=== PATIENT | male | born 1950 | race Caucasian/White ===

== ENCOUNTER → 2016-11-03 14:39 | Outpatient (CLI) | payer OTHER ==
[2015-04-19 11:15] VITALS: BMI 32.1
[~2016-11-03 14:39] MED LIST: ASPIRIN EC81 M1 PO; GLIPIZIDE PO; GLUCOPHAGE1000 MG PO; GLUCOPHAGE500 MG PO; HEMOCYTE PLUS C1 CAP PO; HYDROCODON-ACE1 EAC9 PO; HYDROCODONE-APA1 TAB PO; LANTUS SOL100 UNIT/1 SC; LEVAQUIN750 MG PO; LIPITOR40 MG PO; LISINOPRIL PO; LISINOPRIL2.5 MG PO; LOPRESSOR25 MG PO; NITROSTAT0.4 MG SL
[2016-11-05 08:21] LABS: HEPATITIS C ANTIBODY <0.1 (0.0-0.9)
== END | disposition home or self-care (01) ==
LOC: D.US 14:30
PROVIDERS: Internal Medicine Cardiovascular Disease
DX: Z01.812 Encounter for preprocedural laboratory examination (principal)

== ENCOUNTER 2016-11-06 00:01 | Outpatient (CLI) | payer OTHER ==
[~2016-11-06 00:01] MED LIST changes: -GLUCOPHAGE1000 MG PO; -HEMOCYTE PLUS C1 CAP PO; -HYDROCODON-ACE1 EAC9 PO; -HYDROCODONE-APA1 TAB PO; -LANTUS SOL100 UNIT/1 SC; -LEVAQUIN750 MG PO; -LIPITOR40 MG PO; -LISINOPRIL2.5 MG PO; -LOPRESSOR25 MG PO; -NITROSTAT0.4 MG SL
[2016-11-09] MEDS ORDERED: LIPITOR40 MG PO (09:50)
[2016-11-09] MEDS ORDERED: GLUCOPHAGE1000 MG PO (09:50)
[2016-11-09] MEDS ORDERED: LANTUS SOL100 UNIT/1 SC (09:52)
[2016-11-09] MEDS ORDERED: LISINOPRIL2.5 MG PO (09:53)
[2016-11-09] MEDS ORDERED: NITROSTAT0.4 MG SL (09:54)
--- NOTE | 2016-11-09 15:15 | NUR ---
AT [facility] PATIENT REPORTED HAVING PRODUCTIVE COUGH X 3-4 DAYS, DENIES FEVER, CHILLS, SHORTNESS OF BREATH OR ANY OTHER SYMPTOMS. CURRENT TEMP 99.0. FAISAL ZAMORA RN NOTIFIED OF ABOVE. PATIENT INFORMED SURGERY CANCELLED FOR 11/11/16 & HE NEEDS TO F/U AT [facility] FOR COUGH, FEVER. PT TO CALL DR. WARD'S OFFICE TO R/S WHEN SYMPTOMS RESOLVED.
--- NOTE | 2016-11-14 10:49 | HP ---
PATIENT: MAHSA CARSON MEDICAL RECORD: [id number] ACCOUNT: [id number] LOCATION:[facility] : 48 ADMISSION DATE: 11/11/16 HISTORY AND PHYSICAL EXAMINATION MAHSA Veras (66yo, M) ID# [id number]. Date/Time11/03/2016 02:[id number] 1950Service Dept.[facility] Cardiovascular Surgery ClinicProviderEDLILA WARD MDInsuranceMed Primary: MEDICARE-[place] (MEDICARE) Insurance # : [id number] Employer Name : RETIRED Med Contracts: [employer] Insurance # : [id number] Employer Name : RETIRED Prescription: [employer] - This member could not be found in the payer's files. Please verify coverage and all member demographic information. Chief Complaint Coronary artery disease Patient's Care Team Notes: NO PCP Patient's Pharmacies [facility] (PHARMACY): [address] [place] [id number], , [facility] [address] (ERX): [address] [facility] [address], , Vitals BP:132/78 sitting R arm 11/03/2016 01:27 pm 112/70 sitting L arm 11/03/2016 01:28 pmHR:66R/R 11/03/2016 01:28 pmHt:6 ft 11/03/2016 01:23 pmWt:230 lbs 11/03/2016 01:23 pmBMI:31.2 11/03/2016 01:23 pmAllergies Reviewed Allergies NKDAMedications Reviewed Medications aspirin 81mg daily11/03/16 enteredCindy Brownatorvastatin 80 mg tablet Take 1 tablet(s) every day by oral route.11/03/16 enteredCindy BrownHumuLIN R U-100 100 unit/mL injection solution PER SLIDING SCALE12/06/15 filledsurescriptsinsulin glargine 100 unit/mL (3 mL) subcutaneous pen Inject 40 unit(s) every day by subcutaneous route at bedtime.11/03/16 Paris Hickeyisosorbide dinitrate 30 mg tablet Take 1 tablet(s) every day by oral route.11/03/16 Paris HickeyKenalog 10 mg/mL suspension for injection Take 1 mL by injection route as directed.07/04/15 Devika Villagomez MDlisinopril 2.5 mg tablet Take 1 tablet(s) every day by oral route.11/03/16 enteredCindana BrownmetFORMIN 1000mg 1 tablet by mouth twice daily04/04/15 enteredCarry Shirleymetoprolol tartrate 25 mg tablet Take 0.5 tablet(s) twice a day by oral route.11/03/16 enteredCindana Hickeynitroglycerin 0.[address] 1 tablet(s) as needed by sublingual route.11/03/16 christopherIqra HickeyNovoLIN R InnoLet 100 unit/mL (3 mL) subcutaneous insulin pen Inject 8 unit(s) 3 times a day by subcutaneous route before meals.11/03/16 christopherIqra HickeyProblems Reviewed Problems Coronary arteriosclerosis - Onset: 11/03/2016 HISTORY AND PHYSICAL [id number] MAHSA CARSON Olecranon bursitis Rupture of tendon of biceps Family History Discussed Family History Non-contributory.Father- PneumoniaMother- Family history of cancerSocial History Discussed Social History Smoking Status: Never smoker Surgical History Reviewed Surgical History Biceps tendon repair Biceps tendon repair - 04/19/2015 Other - 2013 - LITHOTRIPSY-KIDNEY STONES Other - 2012 - HERNIA REPAIR Past Medical History Discussed Past Medical History Chest Pain: Y Coronary Artery Disease: Y Diabetes: Y - insulin dependent Hypertension: Y Stroke: Y Kidney Disease: (no answer) - KIDNEY STONES Documents for Discussion N/A Screening None recorded. HPI coronary artery disease with angina pectoris ROS Patient reports no fever, no night sweats, no significant weight gain, no significant weight loss, and no exercise intolerance; easy fatigability. He reports vision change (left homonymous heminoptcia) but r eports no dry eyes and no irritation. He reports chest pain on exertion, arm pain on exertion, and shortness of breath when walking but reports no shortness of breath when lying down, no palpitations, and no known heart murmur. He reports shortness of breath but reports no cough, no wheezing, and no coughing up blood. He reports muscle aches and arthralgias/joint pain but reports no muscle weakness, no back pain, and no swelling in the extremities. He reports no loss of consciousness, no weakness, no numbness, no seizures, no dizziness, and no headaches; left field cut. He reports no difficulty hearing and no ear pain. He reports no frequent nosebleeds and no nose/sinus problems. He reports no sore throat, no bleeding gums, no snoring, no dry mouth, no mouth ulcers, no oral abnormalities, and no teeth problems. He reports no jugular vein distension and no swollen glands. He reports no abdominal pain, no vomiting, normal appetite, no diarrhea, not vomiting blood, no nausea, and no constipation. He reports no i ncontinence, no difficulty urinating, no hematuria, and no increased frequency. He reports no abnormal mole, no jaundice, and no rashes. He reports no depression, no sleep disturbances, feeling safe in relationship, and no alcohol abuse. He reports no fat igue. He reports no swollen glands and no bruising. He reports no runny nose, no sinus pressure, no itching, no hives, and no frequent sneezing. ROS as noted in the HPI Physical Exam Patient is a 66-year-old male. HISTORY AND PHYSICAL [id number] MAHSA CARSON Constitutional: General Appearance well nourished and developed and healthy-appearing. Level of Distress NAD. Ambulation ambulating normally. Cardiovascular: Apical Impulse not displaced or no thrill. Heart Auscultation normal s1 and s2; no murmurs, rubs, or gallops; and RRR. Arterial Pulses no abdominal aorta bruits, femoral bruits, or popliteal bruits and 2+ bilateral, carotid 2+ bilateral, femoral 2+ bilateral, popliteal 2+ bilateral, and dorsalis pedis 2+ bilateral. Edema no edema or varicosities. Lungs: Repiratory Effort no dyspnea. Percuss ion no hyperresonance or dullness or flatness. Auscultation no wheezing, rhonchi, or rales / crackles and breathing sounds normal, good air movement, and CTA except as noted. Abdomen: Bowl Sounds normal. Inspection and Palpation no tenderness, guarding, m asses, or rebound tenderness and soft and non-distended. Liver non-tender and no hepatomegaly. Spleen non-tender and no splenomegaly. Hernia none palpable. Musculoskeletal System: Gait And Stance normal gait and stance. Digits and Nails normal nails and no cyanosis. Neurologic: Cranial Nerves grossly intact. Reflexes DTRs 2+ bilaterally throughout. Sensation grossly intact. Lymph Nodes: Lymph Nodes no cervical LAD, supraclavicular LAD, axillary LAD, or inguinal LAD. Eyes: Lids and Conjunctivae no discharge or pallor and non-injected; the left field cut. Pupils PERRLA. Cornea grossly intact. EOM EOMI. Lens clear. Sclerae non-icteric. Neck: Neck no masses or enlarged lymph nodes and supple, trachea midline, and carotid bruits (soft bilateral). Thyroid no enlargement or nodules and non-tender. Skin: Inspection and Palpation no rash, lesions, ulcers, jaundice, or abnormal nevi. Assessment / Plan atherosclerosis coronary arteries with angina Diabetes mellitus History of stroke 1. Angina pectoris I20.9: Angina pectoris, unspecified ANGINA: CARE INSTRUCTIONS 2. Coronary arteriosclerosis in [place] artery I25.10: Atherosclerotic heart disease of [place] coronary artery without angina pectoris 3. History of cerebrovascular accident Z86.73: Personal hi story of transient ischemic attack (TIA), and cerebral infarction without residual deficits 4. Type 2 diabetes mellitus without complication E11.9: Type 2 diabetes mellitus without complications TYPE 2 DIABETES: CARE INSTRUCTIONS HISTORY AND PHYSICAL [id number] MAHSA CARSON Discussion Notes diabetic atherosclerosis of the coronary arteries with angina pectoris.He will need carotid Doppler studies to rule out disease because of his history with stroke. After his workup I think that he would benefit from coronary artery bypass. I have discusse d his disease process with him in detail as well as the alternative methods of treatment. We discussed coronary artery bypass and the expected benefits and risk which included bleeding, infection, stroke, loss of limb, and . We also discussed the impo nderables associated with an operation. He understands all of the above and wishes to proceed with planned surgery. Return to Office Martin Ward MD for Surgery at [facility]GERY SCHEDULE on 11/11/2016 at 07:30 AM MARTIN WARD MD at 1049 CC: [id number] DICTATION DATE: 11/03/15 1400 SENIOR TECHNICAL MANAGER: ISELA 11/09/16 0951 [address] IN [place] [id number] [place], [place] [id number]
== END 2016-11-06 23:59 | disposition home or self-care (01) ==
LOC: D.PAN 00:01 → EDSTATUS 11-11 07:30 → D.SDCHOLD 11-11 07:30
DX: Z01.810 Encounter for preprocedural cardiovascular examination (principal); Z01.811 Encounter for preprocedural respiratory examination; Z01.812 Encounter for preprocedural laboratory examination; Z53.9 Procedure and treatment not carried out, unspecified reason

== ENCOUNTER 2016-11-24 05:00 | Inpatient (IN) | payer OTHER ==
--- NOTE | 2016-11-21 11:06 | HP ---
PATIENT: MAHSA CARSON MEDICAL RECORD: [id number] ACCOUNT: [id number] LOCATION:[facility] : 48 ADMISSION DATE: 11/24/16 HISTORY AND PHYSICAL EXAMINATION MAHSA Veras (66yo, M) ID# [id number]. Date/Time11/19/2016 01:[id number] 1950Service Dept.[facility] Cardiovascular Surgery ClinicProviderEDLILA WARD MDInsuranceMed Primary: MEDICARE-[place] (MEDICARE) Insurance # : [id number] Employer Name : RETIRED Med Contracts: [employer] Insurance # : [id number] Employer Name : RETIRED Prescription: [employer] - This member could not be found in the payer's files. Please verify coverage and all member demographic information. Chief Complaint Followup: Coronary arteriosclerosis preop for CABG, CAD Patient's Care Team Notes: NO PCP Patient's Pharmacies [facility] (PHARMACY): [address] [address], , [facility] [address] (ERX): [address] [facility] [address], , Vitals BP:138/76 sitting L arm 11/19/2016 01:47 pmBP Cuff Size:adult 11/19/2016 01:47 pmHR:88,reg 11/19/2016 01:47 pmHt:6 ft 11/19/2016 01:44 pmWt:230 lbs 11/19/2016 01:47 pmNotes:finished antibiotics last week, states he is well and ready to schedule surgery 11/19/2016 01:48 pmBMI:31.2 11/19/2016 01:47 pmAllergies Reviewed Allergies NKDAMedications Reviewed Medications aspirin 81mg daily11/03/16 enteredCindy Brownatorvastatin 80 mg tablet Take 1 tablet(s) every day by oral route.11/03/16 enteredCindana BrownHumuLIN R U-100 100 unit/mL injection solution PER SLIDING SCALE12/06/15 filledsurescriptsinsulin glargine 100 unit/mL (3 mL) subcutaneous pen Inject 40 unit(s) every day by subcutaneous route at bedtime.11/03/16 christopherIqra Hickeyisosorbide dinitrate 30 mg tablet Take 1 tablet(s) every day by oral route.11/03/16 christopherAnalisadana HickeyKenalog 10 mg/mL suspension for injection Take 1 mL by injection route as directed.07/04/15 Devika Villagomez MDlisinopril 2.5 mg tablet Take 1 tablet(s) every day by oral route.11/03/16 enteredCindana HickeymetFORMIN 1000mg 1 tablet by mouth twice daily04/04/15 enteredCarezra Shirleymetoprolol tartrate 25 mg tablet Take 0.5 tablet(s) twice a day by oral route.11/03/16 christopherIqra Hickeynitroglycerin 0.[address] 1 tablet(s) as needed by sublingual route.11/03/16 Paris HickeyNovoLIN R InnoLet 100 unit/mL (3 mL) subcutaneous insulin pen Inject 8 unit(s) 3 times a day by subcutaneous route before meals.11/03/16 Paris HickeyProblems Reviewed Problems HISTORY AND PHYSICAL [id number] MAHSA CARSON Coronary arteriosclerosis - Onset: 11/03/2016 Olecranon bursitis Rupture of tendon of biceps Family History Discussed Family History Non-contributory.Father- PneumoniaMother- Family history of cancerSocial History Discussed Social History Smoking Status: Never smoker Surgical History Reviewed Surgical History Biceps tendon repair Biceps tendon repair - 04/19/2015 Other - 2013 - LITHOTRIPSY-KIDNEY STONES Other - 2012 - HERNIA REPAIR Past Medical History Discussed Past Medical History Chest Pain: Y Coronary Artery Disease: Y Diabetes: Y - insulin dependent Hypertension: Y Stroke: Y Kidney Disease: (no answer) - KIDNEY STONES Documents for Discussion Discussed the following documents: HEPATITIS (A+B+C) PANEL, SERUM - 11/05/16 Results: - SERUM OR PLASMA HEPATITIS A VIRUS IGM ANTIBODY DETECTION BY IMMUNOASSAY: NEGATIVE NEGATIVE NORMAL - SERUM OR PLASMA HEPATITIS B VIRUS CORE IGM ANTIBODY DETECTION BY IMMUNOA: NEGATIVE NEGATIVE NORMAL - SERUM OR PLASMA HEPATITIS B VIRUS SURFACE ANTIGEN DETECTION BY IMMUNOASSA: NEGATIVE NEGATIVE NORMAL - HCV AB S/CO SERPL EIA: < 0.1 NORMAL US, DUPLEX, CAROTID ARTERY - 11/03/16 HISTORY AND PHYSICAL - [facility] - 11/10/16 Screening None recorded. HPI Coronary Artery Disease F/U Reported by patient. Associated Symptoms: dyspnea with exertion; every afternoon gets tired and it's time to rest coronary artery disease with angina pectoris ROS Patient reports no fever, no night sweats, no significant weight gain, no significant weight loss, and no exercise intolerance; easy fatigability. He reports vision change (left homonymous heminoptcia) but reports no dry eyes and no irritation. He reports chest pain on exertion, arm pain on exertion, and shortness of breath when walking but reports no shortness of breath when lying down, no palpitations, and no known heart murmur. He reports shortness of breath but reports no cough, no wheezing, and no coughing up blood. He reports muscle aches and arthralgias/joint pain but reports no muscle weakness, no back pain, and no HISTORY AND PHYSICAL [id number] MAHSA CARSON swelling in the extremities. He reports no loss of consciousness, no weakness, no numbness, no seizures, no dizziness, and no headaches; left field cut. He reports no difficulty hearing and no ear pain. He reports no frequent nosebleeds and no nose/sinus problems. He reports no sore throat, no bleeding gums, no snoring, no dry mouth, no mouth ulcers, no oral abnormalities, and no teeth problems. He reports no jugular vein disten s ion and no swollen glands. He reports no abdominal pain, no vomiting, normal appetite, no diarrhea, not vomiting blood, no nausea, and no constipation. He reports no incontinence, no difficulty urinating, no hematuria, and no increased frequency. He repor t s no abnormal mole, no jaundice, and no rashes. He reports no depression, no sleep disturbances, feeling safe in relationship, and no alcohol abuse. He reports no fatigue. He reports no swollen glands and no bruising. He reports no runny nose, no sinus pr essure, no itching, no hives, and no frequent sneezing. ROS as noted in the HPI Physical Exam Patient is a 66-year-old male. Constitutional: General Appearance well nourished and developed and healthy-appearing. Level of Distress NAD. Ambulation ambulating normally. Cardiovascular: Apical Impulse not displaced or no thrill. Heart Auscultation normal s1 and s2; no murmurs, rubs, or gallops; and RRR. Arterial Pulses no abdominal aorta bruits, femoral bruits, or popliteal bruits and 2+ bilateral, carotid 2+ bilateral, femoral 2+ bilateral, popliteal 2+ bilateral, and dorsalis pedis 2+ bilateral. Edema no edema or varicosities. Lungs: Repiratory Effort no dyspnea. Percussion no hyperresonance or dullness or flatness. Auscultation no wheezing, rhonchi, or rale s / crackles and breathing sounds normal, good air movement, and CTA except as noted. Abdomen: Bowl Sounds normal. Inspection and Palpation no tenderness, guarding, masses, or rebound tenderness and soft and non-distended. Liver non-tender and no hepatomegaly. Spleen non-tender and no splenomegaly. Hernia none palpable. Musculoskeletal System: Gait And Stance normal gait and stance. Digits and Nails normal nails and no cyanosis. Neurologic: Cranial Nerves grossly intact. Reflexes DTRs 2+ bilaterally throughout. Sensation grossly intact. Lymph Nodes: Lymph Nodes no cervical LAD, supraclavicular LAD, axillary LAD, or inguinal LAD. Eyes: Lids and Conjunctivae no discharge or pallor and non-injected; the left field cut. Pupils PERRLA. Cornea grossly intact. EOM EOMI. Lens clear. Sclerae non-icteric. Neck: Neck no masses or enlarged lymph nodes and supple, trachea midline, and carotid bruits (soft bilateral). Thyroid no enlargement or nodules and non-tender. Skin: Inspection and Palpation no rash, lesions, ulcers, jaundice, or abnormal nevi. Assessment / Plan preop aortocoronary artery bypass 1. Coronary arteriosclerosis HISTORY AND PHYSICAL [id number] MAHSA CARSON I25.10: Atherosclerotic heart disease of [place] coronary artery without angina pectoris Discussion Notes he has recovered from his URI and is ready for coronary bypass. I have discussed his disease process with him in detail as well as the alternative methods of treatment. We discussed coronary artery bypass including the expected benefits and risk whi ch included bleeding, infection, stroke, loss of limb, and . He understands all of the above and wishes to proceed with planned procedure. Return to Office Yony Ward MD for Surgery at [facility]_SURGERY SCHEDULE on 11/24/2016 at 07:30 AM YONY WARD MD at 1106 CC: [id number] DICTATION DATE: 11/19/16 1345 ECONOMIC GEOGRAPHER: ISELA 11/20/16 0920 PRE IN [facility] [address] [place] [address]
[2016-11-23 10:55] LABS: BASOPHILS 0.1 % (0.0-2.0); EOSINOPHILS 2.1 % (0-7); HEMATOCRIT 44.1 % (42.0-54.0); HEMOGLOBIN 15.6 g/dL (13.5-17.5); IMMATURE GRANULOCYTES 0.1 % (0-5); LYMPHOCYTES 18.6 % (15-50); MCH 30.7 pg (26.0-34.0); MCHC 35.4 g/dL (31.0-37.0); MCV 86.8 fL (80.0-100.0); MEAN PLATELET VOLUME 11.2 fL (7.4-10.4); MONOCYTES 4.7 % (2-11); NEUTROPHILS 74.4 % (40-80); PLATELET COUNT 129 10x3/uL (130-400); RBC 5.08 10x6/uL (4.20-6.10); RDW 13.1 % (11.5-14.5); WBC 6.8 10x3/uL (4.8-10.8)
[2016-11-23 11:28] LABS: APTT 27.9 SECONDS (22.8-39.4); INR 1.03 (0.85-1.17); PROTIME 13.3 SECONDS (11.6-15.0)
[2016-11-23 11:39] LABS: ALBUMIN 3.8 g/dL (3.4-5.0); ALKALINE PHOSPHATASE 100 U/L (46-116); ALT (SGPT) 41 U/L (10-68); CALC OSMOLALITY 279 mosm/kg (275-300); CALCIUM 8.8 mg/dL (8.5-10.1); CARBON DIOXIDE 28.5 mmol/L (21.0-32.0); CHLORIDE - SERUM 98 mmol/L (98-107); CHOLESTEROL, TOTAL 119 mg/dL (0-200); CREATININE - SERUM 0.9 mg/dL (0.6-1.3); GLUCOSE 303 mg/dL (74-106); PHOSPHOROUS 3.2 mg/dL (2.5-4.9); POTASSIUM - SERUM 4.8 mmol/L (3.5-5.1); PROTEIN - SERUM 6.9 g/dL (6.4-8.2); SODIUM 134 mmol/L (136-145); T4 THYROXIN - FREE 1.14 ng/dL (0.76-1.46); UREA NITROGEN 14 mg/dL (7-18); URIC ACID 4.2 mg/dL (2.6-7.2); eGFR NON AFRICAN AMERICAN 89 mL/min (90-120)
[2016-11-23 12:06] LABS: APPEARANCE CLEAR (CLEAR); BILIRUBIN NEGATIVE (NEGATIVE); COLOR YELLOW (YELLOW); GLUCOSE 1000 mg/dL (NEGATIVE); KETONE NEGATIVE (NEGATIVE); LEUKOCYTE ESTERASE NEGATIVE (NEGATIVE); NITRITE NEGATIVE (NEGATIVE); PROTEIN NEGATIVE (NEGATIVE); UROBILINOGEN NORMAL (NORMAL)
[2016-11-23 13:08] LABS: COLD SCREEN ROOM TEMP NEGATIVE (NEGATIVE)
[2016-11-23 13:09] LABS: COLD SCREEN @ 4 DEGREES NEGATIVE (NEGATIVE)
[~2016-11-24] VITALS: Ht 182.9 cm; Wt 111.7 kg
[2016-11-24] VITALS (35 sets, daily range): BP systolic 97–127; BP diastolic 38–374; BMI 31.5; BMI 34.0
[~2016-11-24 05:00] MED LIST changes: +GLUCOPHAGE1000 MG PO; +LANTUS SOL100 UNIT/1 SC; +LIPITOR40 MG PO; +LISINOPRIL2.5 MG PO; +NITROSTAT0.4 MG SL
[2016-11-24 08:12] LABS: PLT FUNCT.(P2Y12) PLAVIX 320 PRU (194-418)
[2016-11-24 15:24] LABS: MCH 30.3 pg (26.0-34.0); MCHC 34.8 g/dL (31.0-37.0); MCV 87.1 fL (80.0-100.0); MEAN PLATELET VOLUME 10.3 fL (7.4-10.4); RDW 13.3 % (11.5-14.5)
[2016-11-24 15:25] LABS: HEMOGLOBIN 11.5 g/dL (13.5-17.5); RBC 3.79 10x6/uL (4.20-6.10)
[2016-11-24 15:35] LABS: APTT 33.6 SECONDS (22.8-39.4); INR 1.42 (0.85-1.17); PROTIME 17.2 SECONDS (11.6-15.0)
[2016-11-24 15:40] LABS: CALCIUM 7.6 mg/dL (8.5-10.1); CARBON DIOXIDE 25.1 mmol/L (21.0-32.0); CHLORIDE - SERUM 110 mmol/L (98-107); SODIUM 145 mmol/L (136-145); UREA NITROGEN 12 mg/dL (7-18)
[2016-11-24 15:41] LABS: CALC OSMOLALITY 292 mosm/kg (275-300); CREATININE - SERUM 0.6 mg/dL (0.6-1.3); GLUCOSE 177 mg/dL (74-106); POTASSIUM - SERUM 3.5 mmol/L (3.5-5.1); eGFR NON AFRICAN AMERICAN > 90 mL/min (90-120)
--- NOTE | 2016-11-24 15:54 | NUR ---
Patient received from OR via heart team.
--- NOTE | 2016-11-24 16:30 | NUR ---
Fluid challange order per
--- NOTE | 2016-11-24 16:35 | NUR ---
brought back into room. Password for acct created. Patient waking slowly at this time.
--- NOTE | 2016-11-24 17:12 | NUR ---
in room. TPM settings played with. Settings remain DDD, 10 & 10.
--- NOTE | 2016-11-24 18:26 | NUR ---
ABGS obtained for call to . Pt continuing to wake slowly. BP starting to trend down.
--- NOTE | 2016-11-24 18:36 | NUR ---
called and given update. No new orders. Will replace Potassium per standing order per ABG
--- NOTE | 2016-11-24 19:00 | NUR ---
REC'D TO CARE. PT ON MECH VENT VIA OETT - SEE FLOWSHEET. B/L SOFT WRIST RESTRAINTS ON PER ORDERS. PT NODS HEAD APPROP. NO SIGN OF DISTRESS. IVF INFUSING TO R IJ SG AND L DLSC - SEE FLOWSHEET - WILL WEAN PER MD ORDERS. CM - RRR, TPM VVI 90, A-SENSING, V-PACING - WIRES SECURED TO SUBSTERNAL DSG. CT X 3 NOTED - BLOODY DRAINAGE, NO AIR LEAK NOTED. ALARMS ON. WILL CONT 1:1 NURSING CARE.
--- NOTE | 2016-11-24 19:46 | NUR ---
DISTILLER PER FLOWSHEET. RT CONT TO WEAN VENT PER PROTOCOL. PT WAKING, REORIENTED TO SITUAION FREQUENTLY. ORAL CARE PROVIDED.
--- NOTE | 2016-11-24 19:59 | NUR ---
VENT NOW ON CPAP - RR 18, UNLABORED.
--- NOTE | 2016-11-24 20:34 | NUR ---
CONT ON CPAP, NO SIGN OF DISTRESS. DENIES NAUSEA. ROM DONE. ORAL CARE DONE.
--- NOTE | 2016-11-24 20:47 | NUR ---
HARMONY WNL. PLAN FOR EXTUBATION.
--- NOTE | 2016-11-24 20:55 | NUR ---
EXTUBATED TO 4L NC. WRIST RESTRAINTS DC'D. OGT D/C'D
--- NOTE | 2016-11-24 22:11 | NUR ---
CM GOING IN TO REG RHYTHM AT 128 - SENSING, THEN BACK TO 106 V-PACED. ABGS DRAWN. WILL TREAT PER STANDING ORDERS
--- NOTE | 2016-11-24 22:21 | NUR ---
DR. WARD NOTIFIED IN CHANGES IN HEART RHYTHM - NO NEW ORDERS.
--- NOTE | 2016-11-24 22:59 | NUR ---
REASSESSMENT PER FLOWSHEET. NO ACUTE CHANGES. CONT TO HAVE RHYTHM CHANGES NOTED EARLIER, WEANING LEVOPHED GTT. PT USING FLEXO PRESS OPERATOR - REPORTS "NOT REALLY PAIN, JUST NOT COMFORTABLE". FREQ REPOSITIONING. TAKING ICE WATER, NO NAUSEA.
--- NOTE | 2016-11-24 23:33 | NUR ---
PARTIAL BATH AND LINEN CHANGE DONE. PT REPOSITIONED UP IN BED. RT AT BS FOR RESP TX. I.S. TO 1000, GOOD COUGH.
[2016-11-25] VITALS (80 sets, daily range): BP systolic 90–130; BP diastolic 40–66; Ht 182.9 cm; Wt 111.7 kg
--- NOTE | 2016-11-25 02:12 | NUR ---
ABGS WNL. PT REPOSITIONED UP IN BED. GOOD COUGH. VSS.
--- NOTE | 2016-11-25 04:00 | NUR ---
PT WITH EMESIS OF 100ML CLEAR LIQUID.. ZOFRAN GIVEN IV PER PRN ORDER. COMPLETE BATH AND LINEN CHANGE DONE. PT UP IN BED TO R SIDE WITH PILLOW. PT COOPERATIVE. DENIES NAUSEA AFTER BATH. WILL CONT CLOSE MONITORING.
--- NOTE | 2016-11-25 06:05 | NUR ---
DR. WARD CALLED THE UNIT, PT STATUS REPORT GIVEN, NO NEW ORDERS.
[2016-11-25 06:23] LABS: MCH 30.4 pg (26.0-34.0); MCHC 34.9 g/dL (31.0-37.0); MCV 87.1 fL (80.0-100.0); MEAN PLATELET VOLUME 10.6 fL (7.4-10.4); RDW 13.5 % (11.5-14.5)
[2016-11-25 06:27] LABS: HEMATOCRIT 24.9 % (42.0-54.0); HEMOGLOBIN 8.7 g/dL (13.5-17.5); RBC 2.86 10x6/uL (4.20-6.10); WBC 9.6 10x3/uL (4.8-10.8)
[2016-11-25 06:37] LABS: ALBUMIN 3.4 g/dL (3.4-5.0); ALKALINE PHOSPHATASE 27 U/L (46-116); ALT (SGPT) 28 U/L (10-68); CALC OSMOLALITY 277 mosm/kg (275-300); CHLORIDE - SERUM 105 mmol/L (98-107); CREATININE - SERUM 0.8 mg/dL (0.6-1.3); GLUCOSE 114 mg/dL (74-106); POTASSIUM - SERUM 4.2 mmol/L (3.5-5.1); PROTEIN - SERUM 5.1 g/dL (6.4-8.2); SODIUM 138 mmol/L (136-145); UREA NITROGEN 14 mg/dL (7-18); eGFR NON AFRICAN AMERICAN > 90 mL/min (90-120)
--- NOTE | 2016-11-25 07:15 | NUR ---
REPORT RECIEVED FROM LINE O SCRIBE OPERATOR NURSE. PT RESTING IN BED QUIETLY. NO S/SX OF ACUTE DISTRESS NOTED. ASSESSMENT COMPLETE PER FLOWSHEET. BED IN LOW POSITION. BED ALARM ON. CALL LIGHT IN REACH. WILL CONT 1:1 CARE.
--- NOTE | 2016-11-25 07:45 | NUR ---
FAN MALONE AT BEDSIDE. UPDATE PROVIDED.
--- NOTE | 2016-11-25 09:00 | NUR ---
AT BEDSIDE. UPDATE PROVIDED.
--- NOTE | 2016-11-25 12:30 | NUR ---
PT MOVED FROM ICU TO CVICU. TRANSFERED VIA BED. ATTACHED TO ICU MONITORS. VSS AT THIS TIME. CALL LIGHT IN REACH. BED IN LOW POSITION. WILL CONT 1:1 CARE.
--- NOTE | 2016-11-25 12:45 | NUR ---
PT CONFUSED WHEN MOVED TO NEW UNIT. UPSET BECAUSE HE IS NOT FAMILIAR WITH THIS NEW AREA. IT SMELLS LIKE PAINT AND HE DOES NOT LIKE THAT. CHARGE NURSE AND DEVON CHANEY AT BEDSIDE TO ANSWER QUESTIONS AND CONCERS PT HAS. CALLED AND UPDATED. ASKED TO COME TO CVICU.
--- NOTE | 2016-11-25 13:25 | OP ---
PATIENT NAME: MAHSA CARSON MEDICAL RECORD: [id number] :49 [facility] AD[facility]ION DATE:11/24/16 SURGEON: MARTIN ROLDAN MD DATE OF OPERATION: 11/24/2016 SURGEON: Martin Roldan MD ANESTHESIA: General endotracheal, Dr. Milan. OPERATIONS PERFORMED: Aortocoronary artery bypass utilizing left internal thoracic to the second diagonal, reverse saphenous vein graft to the first diagonal, reverse saphenous vein graft to the obtuse marginal coronary artery and reverse saphenous vein graft to the posterior descending coronary artery. PREOPERATIVE DIAGNOSES: Angina pectoris and severe occlusive coronary artery disease. POSTOPERATIVE DIAGNOSES: Angina pectoris and severe occlusive coronary artery disease. INDICATION FOR OPERATION: Angina pectoris. FINDINGS OF THE OPERATION: The left anterior descending is not present. He had a second diagonal that was a 1.5 mm vessel and graftable. The first diagonal was a 1.5 mm vessel and graftable. The obtuse marginal was a 3.5-mm vessel severely diseased, but graftable. The distal right was not graftable due to severe disease; however, the posterior descending was graftable in its mid portion. ESTIMATED BLOOD LOSS: Cell Saver was used. DESCRIPTION OF PROCEDURE: After informed consent, adequate preoperative medication evaluation, the patient was brought to the operating room, placed on the table in the supine position. After induction of general endotracheal anesthesia and application of appropriate monitoring devices, the chest, neck, abdomen, and both legs were prepped and draped in a sterile field, utilizing Betadine scrub, alcohol, and Betadine solution. A Betadine-impregnated drape was also used. Saphenous vein was harvested from the right upper leg and thigh and prepared for reverse saphenous vein grafting. The leg was closed over drains utilizing 3-0 Vicryl and skin carmelita. A median sternotomy incision was made and dissection carried down the fascia. Hemostasis maintained with electrocautery. Sternum was divided and the innominate vein was identified and protected. Left internal thoracic was taken down and prepared for grafting. The patient was given a calculated dose of heparin, cannulated in the standard fashion utilizing 1 aortic and 1 two-stage cannula through the atrium and inferior vena cava. The patient was placed on cardiopulmonary bypass, cooled to 32 degrees centigrade. A cross clamp was placed just proximal to the aortic cannula and the patient was given cardioplegic solution through the aortic root. The patient was given a cool induction and cold maintenance. The patient was given cold intermittent cardioplegic solution throughout the procedure, through the root. The vent was placed in right superior pulmonary vein. The first vessel to be grafted was the obtuse marginal was grafted end-to-side just above the bifurcation utilizing a running 7-0 Prolene suture. Graft was measured back to the aorta and a proximal anastomosis fashioned utilizing running 6-0 Prolene suture. Next, the first diagonal was grafted end-to-side utilizing a running OPERATIVE REPORT [id number] MAHSA CARSON 7-0 Prolene suture. This was measured back to the aorta and a proximal anastomosis fashioned utilizing running 6-0 Prolene suture. Next, the posterior descending was grafted in its mid portion and end-to-side utilizing a running 7-0 Prolene suture. Grafts were measured back to the aorta and a proximal anastomosis fashioned utilizing running 6-0 Prolene suture. Next, left internal thoracic was brought through the hole in pericardium and sutured to the second diagonal, end-to-side utilizing a running 8-0 Prolene suture. All maneuvers to remove trapped air were performed. The patient was given warm cardioplegic reperfusion and controlled reperfusion. The patient rewarmed to 37 degrees centigrade ____ and 2 ventricular pacing wires were placed on the heart and brought through the epigastric area. The patient was weaned cardiopulmonary bypass. After being stable off bypass, he was given calculated dose of protamine to reverse the heparin. Chest and mediastinum irrigated with copious amounts of antibiotic solution and normal saline. There was no active bleeding. Instrument count and sponge count were correct times 2. Chest was closed in layers utilizing #7 wire on the sternum, #2 Vicryl in linea alba and pectoralis fascia. Subcutaneous tissue was approximated with 3-0 Vicryl and skin approximated with 3-0 subcuticular Vicryl. Sterile dressings were applied. The patient tolerated the procedure well and transferred to the ICU in satisfactory condition. The left anterior descending is not present from the proximal left anterior descending past the second diagonal to the apex. TRANSINT:[id number] Voice Confirmation ID: [id number] DOCUMENT ID: [id number] MARTIN ROLDAN MD at 1325 CC: [id number] DICTATION DATE: 11/24/16 1555 PROGRAM PROFESSIONAL: 11/24/162124 ADM IN [facility] [address] [id number]
--- NOTE | 2016-11-25 13:41 | NUR ---
HALDOL GIVEN PER ORDERS OF DR. WARD. WILL MONITOR.
--- NOTE | 2016-11-25 14:40 | NUR ---
CM ATTEMPTED TO MEET WITH PATIENT TO ASSESS DC PLAN. BEDSIDE RN INFORMED THAT PT HAS BEEN ANXIOUS SINCE TRANSFERRING FROM ICU TO CVICU AND HAS REQUIRED MEDICATION TO TREAT ANXIETY. SHE INFORMED THAT NOW MAY NOT BE A GOOD TIME TO SPEAK WITH PATIENT DUE TO ANXIETY. CM WILL ASSESS DC PLAN AT LATER TIME.
--- NOTE | 2016-11-25 14:45 | NUR ---
DR. ED JAY AT THIS TIME.
--- NOTE | 2016-11-25 15:00 | NUR ---
CENTRAL LINE DRESSING'S CHANGED PER POLICY.
--- NOTE | 2016-11-25 15:09 | NUR ---
NO VISITORS AT THIS TIME. PT RESTING IN BED QUIETLY. WILL CONT TO ASSESS FOR CHANGES.
--- NOTE | 2016-11-25 17:00 | NUR ---
TURNED AND REPOSITIONED FOR COMFORT. CALL LIGHT IN REACH. BED IN LOW POSITION.
--- NOTE | 2016-11-25 18:00 | NUR ---
AT BEDSIDE. UPDATE PROVIDED.
--- NOTE | 2016-11-25 19:10 | NUR ---
ASSESSMENT COMPLETED. ALERT AND ORIENTED TO PERSON, PLACE AND TIME. SEE FLOW SHEET. O2 @ 3L VIA NC, BRIANNA LUNGS DIMINISHED IN THE BASES. MIDSTERNAL DRSG C-D-I. A/P AND PLEURAL CT TO 20CM SUCTION WITH NO AIR LEAK DETECTED. TEMP PACEMAKER INTACT AT DDD RATE 110 A=PACING, V=PACING. RT IJ SWAN WITH DRSG C-D-I WITH IVF PER FLOW SHEET. LT DLSC, DRSG C-D-I WITH IVF PER FLOW SHEET. CRITICORE GROSS INTACT WITH CLEAR URINE IN BAG. RT LEG DRSG C-D-I WITH BRANDY DRAIN X 2 WITH BULB DEPRESSED. PACED ON THE MONITOR. DENIES ANY NEEDS AT THIS TIME.
--- NOTE | 2016-11-25 21:00 | NUR ---
NO VISITOR'S AT THIS TIME. PACED ON THE MONITOR.
--- NOTE | 2016-11-25 23:00 | NUR ---
NO CHANGES AT THIS TIME. TAKING SMALL NAPS. DENIES ANY PAIN OR NEEDS AT THIS TIME.
[2016-11-26] VITALS (26 sets, daily range): BP systolic 89–150; BP diastolic 41–90
--- NOTE | 2016-11-26 01:00 | NUR ---
EYES CLOSED, RESP EVEN AND UNLABORED. PACED ON THE MONITOR.
--- NOTE | 2016-11-26 03:00 | NUR ---
RADIOLOGY HERE FOR CXR. TOLLERATED WELL.
--- NOTE | 2016-11-26 05:25 | NUR ---
LAB DRAWN PER PROTOCOL. DENIES ANY NEEDS.
[2016-11-26 05:52] LABS: HEMATOCRIT 22.5 % (42.0-54.0); HEMOGLOBIN 7.8 g/dL (13.5-17.5); MCH 30.6 pg (26.0-34.0); MCHC 34.7 g/dL (31.0-37.0); MCV 88.2 fL (80.0-100.0); MEAN PLATELET VOLUME 10.6 fL (7.4-10.4); RBC 2.55 10x6/uL (4.20-6.10); RDW 13.9 % (11.5-14.5); WBC 9.7 10x3/uL (4.8-10.8)
--- NOTE | 2016-11-26 06:00 | NUR ---
NO VISITOR'S AT THIS TIME. PACED ON THE MONITOR.
[2016-11-26 06:08] LABS: ALKALINE PHOSPHATASE 32 U/L (46-116); ALT (SGPT) 29 U/L (10-68); BILIRUBIN - TOTAL 0.47 mg/dL (0.2-1.3); CALCIUM 7.8 mg/dL (8.5-10.1); CARBON DIOXIDE 25.9 mmol/L (21.0-32.0); CHLORIDE - SERUM 103 mmol/L (98-107); CREATININE - SERUM 0.8 mg/dL (0.6-1.3); GLUCOSE 124 mg/dL (74-106); POTASSIUM - SERUM 4.1 mmol/L (3.5-5.1); PROTEIN - SERUM 5.2 g/dL (6.4-8.2); SODIUM 138 mmol/L (136-145); eGFR NON AFRICAN AMERICAN > 90 mL/min (90-120)
[2016-11-26 06:14] LABS: CALC OSMOLALITY 278 mosm/kg (275-300); UREA NITROGEN 19 mg/dL (7-18)
--- NOTE | 2016-11-26 07:15 | NUR ---
REPORT RECIEVED FROM UTILITY SYSTEMS REPAIRER OPERATOR NURSE. PT CONTINUOUSLY MOVING AROUND IN THE BED. ATTEMPTING TO GET UP. PULLING AT SWAN-NINA DRESSING AND MIDSTERNAL DRESSING. STATING HE'S HOT. PT INSRUCTED TO NOT TOUCH DRESSINGS. VERBALIZED UNDERSTANDING. MIDSTERNAL DRESSING REINFORCED WITH TAPE. WILL CONT TO MONITOR. 1:1 CARE PROVIDED. ASSESSMENT COMPLETE PER FLOWSHEET. CALL LIGHT IN REACH.
--- NOTE | 2016-11-26 08:30 | NUR ---
REPOSITIONED FOR COMFORT. IS USED. PULLED 1000. WILL CONTINUE TO INSTRUCT USAGE QH.
--- NOTE | 2016-11-26 10:00 | NUR ---
DR. WARD AT BEDSIDE TO PULL SWAN-NINA AND CHEST TUBES. NEW DRESSINGS PLACED ON PREVIOUS CHEST TUBES SITES. BIO PATCH PLACED AROUND TPM WIRES. PLEURAL CT WAS NOT LEFT DUE TO STEADY OUTPUT. DRESSING PLACED OVER THAT WELL. PRESSURE DRESSING PLACED OVER RIGHT IJ WHERE SWAN WAS. BRANDY 1 AND 2 PULLED FROM RIGHT LEG. DRESSINGS CHANGED PER ORDERS. MIDSTERANL DRESSING CHANGE. CHEST INCISION PAINTED WITH BETADINE AND MEPILEX DRESSING PLACED OVER INCISION. TOLERATED WELL. BED BATH PROVIDED. PARTIAL LINEN CHANGE COMPLETED. WILL CONT TO MONITOR FOR CHANGES.
--- NOTE | 2016-11-26 11:00 | NUR ---
GROSS D/C PER ORDERS. CATH TIP INTACT. 8CC REMOVED FROM BALLOON.
--- NOTE | 2016-11-26 12:45 | NUR ---
WALKED 50FT WITH PT WITH MODERATE ASSIST. ASSISTED BACK TO CHAIR.
--- NOTE | 2016-11-26 15:00 | NUR ---
AT BEDSIDE. UPDATE PROVIDED.
--- NOTE | 2016-11-26 17:30 | NUR ---
ASSISTED BACK TO BED WITH HELP OF ANOTHER NURSE. CALL LIGHT PLACED IN REACH. PT RESTING QUIETLY. WILL CONT TO ASSESS FOR CHANGES.
--- NOTE | 2016-11-26 18:15 | NUR ---
VOIDED 300CC OF LEO COLORED URINE TO URINAL.
--- NOTE | 2016-11-26 19:00 | NUR ---
1900: Pt rec'd resting up in chair with eyes open. Pt is oriented to person, place and time. Pt denies pain, nausea, tingling, or numbness at this time. 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 Breathing 022LNC RR28x with SPO2 97%. S1S2 SR on CM with TPM VVI 60/0/10 showing V-sensing. Midline sternal incision CDI with distal portion with TPM wires taped intact. Left lateral side of incision with x1 Cardiac/Chest drain connected to Atrium collection system with 20cm sx. Approx 50-100cc hr dark red output. RLE with mutiple incision sites covered with 4x4s and tape. No bleeding seen at incision sites. ABD soft NT BSx4 active. Pt states he is passing gas. Denies difficulty with elimination.
--- NOTE | 2016-11-26 19:15 | NUR ---
1914: Pt requested to go back to bed. Pt assisted back to bed with no difficulty. Gait steady with minimal assist.
--- NOTE | 2016-11-26 20:00 | NUR ---
2000: Pt restless in bed with frequent turning. Pt c/o being hot. Notified engineering.
--- NOTE | 2016-11-26 22:00 | NUR ---
2200: Pt continues with restlessness. Turning frequently in bed. Pt is oriented to person, place, but not time. Verbal reorientation is successfull. Pt breathing 022LNC with RR28x with SPO2 96%. Encouraged DBC. Pt has weak non productive effort. Remains SR 96 bpm on CM with no change in TPM settings. Cardiac drain remains to 20cm suction with no air leak detected. Output decreased at this time to 10cc/hr.
--- NOTE | 2016-11-26 23:00 | NUR ---
2300: Pt continues restless with frequent turning and repositioning. Pt has removed 0xygen, BP cuff, and lower extrem dressings are coming off at this time. Pt placed on room air with SPO2 93-95% at this time. Encouraged DBC. Dressing to RLE changed.
[2016-11-27] VITALS (24 sets, daily range): BP systolic 102–141; BP diastolic 47–87
--- NOTE | 2016-11-27 01:00 | NUR ---
0100: Pt remains restless. Pt denies pain at this time. Pt remains SR 90's. Pt remains on RA with RR18x with SPO2 92%. Encouraged DBC. Pt with weak non productive cough. Chest tube output remains decreased approx 5-10cc/hr.
--- NOTE | 2016-11-27 03:00 | NUR ---
0300: Pt urinated in bed. All linen changed at this time. Unable to calculate amount. Apprx 200cc. Pt repositioned for comfort.
--- NOTE | 2016-11-27 04:30 | NUR ---
0430: Pt requested urinal. Assisted patient with use. 500cc dark yellow UOP obtained. Pt oriented at this time to person, place, and time. Pt remains restless, but less frequency in turning. Pt remains SR 80's with occasional paced beats. TPM remains VVI 60/0/10 showing V-sense with occasional V-Paced. Pt is on 022LNC at this time with SP02 95%. Pt repostioned and encouraged DBC.
[2016-11-27 06:01] LABS: HEMATOCRIT 22.1 % (42.0-54.0); HEMOGLOBIN 7.6 g/dL (13.5-17.5); MCH 30.2 pg (26.0-34.0); MCHC 34.4 g/dL (31.0-37.0); MCV 87.7 fL (80.0-100.0); MEAN PLATELET VOLUME 10.5 fL (7.4-10.4); RBC 2.52 10x6/uL (4.20-6.10); RDW 13.6 % (11.5-14.5); WBC 9.4 10x3/uL (4.8-10.8)
[2016-11-27 06:12] LABS: ALKALINE PHOSPHATASE 72 U/L (46-116); BILIRUBIN - TOTAL 0.63 mg/dL (0.2-1.3); CALCIUM 7.9 mg/dL (8.5-10.1); CARBON DIOXIDE 28.1 mmol/L (21.0-32.0); CHLORIDE - SERUM 103 mmol/L (98-107); CREATININE - SERUM 0.8 mg/dL (0.6-1.3); GLUCOSE 222 mg/dL (74-106); POTASSIUM - SERUM 4.2 mmol/L (3.5-5.1); PROTEIN - SERUM 5.5 g/dL (6.4-8.2); SODIUM 138 mmol/L (136-145); eGFR NON AFRICAN AMERICAN > 90 mL/min (90-120)
[2016-11-27 06:13] LABS: ALT (SGPT) 54 U/L (10-68); CALC OSMOLALITY 286 mosm/kg (275-300); UREA NITROGEN 24 mg/dL (7-18)
--- NOTE | 2016-11-27 08:15 | NUR ---
BEDSIDE TABLE PLACED IN REACH. BREAKFAST TRAY PLACED ON TABLE. PT DENIES FURTHER NEEDS AT THIS TIME. WILL CONTINUE TO ASSESS.
--- NOTE | 2016-11-27 09:38 | NUR ---
NUTRITION MONITORING & EVAL CHART REVIEWED, NURSING REPORTS PT WITH GOOD PO INTAKE ADA DIET. WILL CONTINUE TO PROVIDE DIET, MONITOR PO INTAKE, PT PROGRESS. RD FOLLOWING
--- NOTE | 2016-11-27 10:00 | NUR ---
PT WALKED WITH PT. MODERATE AMOUNT OF ASSISTANCE REQUIRED. VS REMAINED STABLE THROUGHOUT WALK. WALKED 50 FT.
--- NOTE | 2016-11-27 11:00 | NUR ---
AT BEDSIDE. UPDATE PROVIDED.
--- NOTE | 2016-11-27 11:31 | NUR ---
REPORT RECIEVED FROM LAMONT ELIZALDE RN. AWAITING PT FROM RR.
--- NOTE | 2016-11-27 13:00 | NUR ---
PT WALKED WITH PT. MODERATE AMOUNT OF ASSISTANCE REQUIRED. VS REMAINED STABLE THROUGHOUT WALK.
[2016-11-27 13:40] LABS: HEMATOCRIT 22.2 % (42.0-54.0); HEMOGLOBIN 7.8 g/dL (13.5-17.5)
--- NOTE | 2016-11-27 15:00 | NUR ---
DR. WARD AT BEDSIDE. REPORTED THAT PLEURAL CHEST TUBE WAS STILL DRAINING EVERY HOUR. STATED HE WOULD LEAVE THE CT IN PLACE FOR NOW. WILL REASSESS TOMORROW.
--- NOTE | 2016-11-27 15:00 | NUR ---
SUBSTERNAL DRESSING CHANGED PER ORDERS ALONG WITH DRESSING TO RIGHT LEG. SITES WELL APPROXIMATED. NO EVIDENCE OF INFECTION NOTED. WILL CONTINUE TO MONITOR DRESSING'S FOR CHANGES.
--- NOTE | 2016-11-27 15:44 | NUR ---
ASSISTED TO BATHROOM. LARGE BROWN BOWEL MOVEMENT NOTED.
--- NOTE | 2016-11-27 17:00 | NUR ---
ASSISTED PT BACK TO BED FROM RECLINER. TOLERATED WELL.
--- NOTE | 2016-11-27 23:30 | NUR ---
1929-REPORT RECVD. CARE ASSUMED. INITIAL ASSMNT COMPLETED. SEE FLOWSHEET FOR ALL FINDINGS. AWAKE AND AOX4. UP IN CHAIR AT BEDSIDE. VISITING. RESP SHALLOW. LUNGS CTA. DIM IN BASES. SPO2 96% ON O2 AT 2 LPM NC. OCC PROD COUGH. SR ON THE MONITOR, TEMP PM VVI 60, SENSING ONLY. PULSES PALP. TEDS/SCDS IN USE. DENIES PAIN. STERNAL DRESSINGS CDI. CHEST TUBE PATENT WITH SEROSANG OUTPUT. PULLS 750 ON IS. ABD SOFT, BSA X4. VOIDS TO URINAL. AFEBRILE. C/L IN REACH. CONT POC . 1999- ASSISTED INTO BED. POSITIONED SELF FOR COMFORT. 2099- HS MEDS GIVEN. S/S INSULIN GIVEN. NO DISTRESS. VSS. SIDE LYING. HOB UP. C/L IN REACH. CONT CURRENT POC. 2229- ASSISTED UP TO CHAIR FOR COMFORT AND TO PROMOTE SLEEP PER REQUEST. 2329- REASSESSMENT COMPLETED. SEE FLOWSHEET FOR ALL FINDINGS. RESTING IN CHAIR AT BEDSIDE. RESP SHALLOW. LUNGS CTA. DIM IN BASES. SPO2 96% ON O2 AT 2 LPM NC. OCC PROD COUGH. SR ON THE MONITOR, TEMP PM VVI 60, SENSING ONLY. PULSES PALP. TEDS/SCDS IN USE. DENIES PAIN. STERNAL DRESSINGS CDI. CHEST TUBE PATENT WITH SEROSANG OUTPUT. PULLS 750 ON IS. ABD SOFT, BSA X4. VOIDS TO URINAL. AFEBRILE. C/L IN REACH. CONT POC .
[2016-11-28] VITALS (24 sets, daily range): BP systolic 103–158; BP diastolic 49–88
--- NOTE | 2016-11-28 01:30 | NUR ---
RESTING UP IN CHAIR WITH EYES CLOSED. VSS. SR ON THE MONITOR. NO NEEDS VOICED. C/L IN REACH. CONT CURRENT POC.
--- NOTE | 2016-11-28 03:30 | NUR ---
REASSESSMENT COMPLETED. SEE FLOWSHEET FOR ALL FINDINGS. AWAKE AND AOX4. UP IN CHAIR AT BEDSIDE. RESTING WITH EYES CLOSED. RESP SHALLOW. LUNGS CTA. DIM IN BASES. SPO2 96% ON O2 AT 2 LPM NC. OCC PROD COUGH SR ON THE MONITOR, TEMP PM VVI 60, SENSING ONLY. PULSES PALP. TEDS/SCDS IN USE. DENIES PAIN. STERNAL DRESSINGS CDI. CHEST TUBE PATENT WITH SEROSANG OUTPUT. PULLS 750 ON IS. ABD SOFT, BSA X4. VOIDS TO URINAL. AFEBRILE. C/L IN REACH. CONT POC .
--- NOTE | 2016-11-28 05:00 | NUR ---
RETURNED FROM XRAY VIA W/C. ASSISTED TO POSITION OF COMFORT IN BED. VSS. SR ON THE MONITOR. TEMP PM INTACT. CHEST TUBE INTACT. PRN PAIN MEDS REQUESTED. HOB UP. C/L IN REACH .CONT CURRENT POC.
[2016-11-28 06:40] LABS: HEMATOCRIT 21.2 % (42.0-54.0); MCH 29.6 pg (26.0-34.0); MCHC 33.5 g/dL (31.0-37.0); MCV 88.3 fL (80.0-100.0); MEAN PLATELET VOLUME 10.8 fL (7.4-10.4); RBC 2.4 10x6/uL (4.20-6.10); RDW 13.7 % (11.5-14.5); WBC 8.7 10x3/uL (4.8-10.8)
[2016-11-28 06:42] LABS: ALBUMIN 2.8 g/dL (3.4-5.0); ALKALINE PHOSPHATASE 68 U/L (46-116); ALT (SGPT) 46 U/L (10-68); BILIRUBIN - TOTAL 0.69 mg/dL (0.2-1.3); CALC OSMOLALITY 286 mosm/kg (275-300); CALCIUM 7.7 mg/dL (8.5-10.1); CARBON DIOXIDE 30.4 mmol/L (21.0-32.0); CHLORIDE - SERUM 103 mmol/L (98-107); CREATININE - SERUM 0.8 mg/dL (0.6-1.3); GLUCOSE 210 mg/dL (74-106); HEMOGLOBIN 7.1 g/dL (13.5-17.5); POTASSIUM - SERUM 4.2 mmol/L (3.5-5.1); PROTEIN - SERUM 5.3 g/dL (6.4-8.2); SODIUM 139 mmol/L (136-145); UREA NITROGEN 20 mg/dL (7-18); eGFR NON AFRICAN AMERICAN > 90 mL/min (90-120)
--- NOTE | 2016-11-28 13:07 | NUR ---
CHEST TUBE DC'D PER DR. WARD. TPM DRESSING CHANGED.
--- NOTE | 2016-11-28 19:05 | NUR ---
REC'D TO CARE, SR COMMUNITY MANAGER PER FLOWSHEET. PT BACK TO BED AFTER GOING TO BR - REPORTS BM, EBONIE-CARE PER PT. LUNGS CTA. CM - NSR, OCC PVC NOTED. TPM VVI 60 - SENSING, WIRES SECURED TO SUBSTERNAL DSG - C/D/I. R LEG DSGS INTACT, SEROUS DRAINAGE TO DSG ABOVE KNEE NOTED. PT DENIES PAIN OR SOB. ALARMS ON AND C/L IN REACH.
--- NOTE | 2016-11-28 21:00 | NUR ---
NO VISITORS. PT RESTING QUIETLY.
--- NOTE | 2016-11-28 21:20 | NUR ---
ADMIN PO MEDS PER ORDERS. ATIVAN PO GIVEN PER PT REQUEST, PRN FOR SLEEP. VSS. PT DENIES NEEDS. C/L IN REACH.
--- NOTE | 2016-11-28 23:12 | NUR ---
REASSESSMENT PER FLOWSHEET, NO ACUTE CHANGES. PT RESTING QUIETLY, NO SIGN OF DISTRESS. VSS. C/L IN REACH.
[2016-11-29] VITALS (23 sets, daily range): BP systolic 95–148; BP diastolic 45–88
--- NOTE | 2016-11-29 01:10 | NUR ---
PT RESTING WITH EYES CLOSED, LYING ON L SIDE, VSS. ALARMS ON.
--- NOTE | 2016-11-29 03:08 | NUR ---
REASSESSMENT PER FLOWSHEET, NO ACUTE CHANGES. PT AWAKENS EASILY, DENIES PAIN OR NEEDS. VSS. C/L IN REACH.
--- NOTE | 2016-11-29 04:36 | NUR ---
TO XRAY VIA W/C.
[2016-11-29 05:55] LABS: HEMATOCRIT 25.4 % (42.0-54.0); MCH 29.8 pg (26.0-34.0); MCHC 34.3 g/dL (31.0-37.0); MEAN PLATELET VOLUME 10.7 fL (7.4-10.4); RDW 14.4 % (11.5-14.5)
[2016-11-29 06:10] LABS: HEMOGLOBIN 8.7 g/dL (13.5-17.5); RBC 2.92 10x6/uL (4.20-6.10); WBC 5.1 10x3/uL (4.8-10.8)
[2016-11-29 06:30] LABS: ALBUMIN 2.6 g/dL (3.4-5.0); ALKALINE PHOSPHATASE 66 U/L (46-116); ALT (SGPT) 43 U/L (10-68); BILIRUBIN - TOTAL 0.97 mg/dL (0.2-1.3); CALC OSMOLALITY 282 mosm/kg (275-300); CALCIUM 7.6 mg/dL (8.5-10.1); CARBON DIOXIDE 29.5 mmol/L (21.0-32.0); CHLORIDE - SERUM 105 mmol/L (98-107); CREATININE - SERUM 0.7 mg/dL (0.6-1.3); GLUCOSE 174 mg/dL (74-106); POTASSIUM - SERUM 3.6 mmol/L (3.5-5.1); PROTEIN - SERUM 5.1 g/dL (6.4-8.2); SODIUM 139 mmol/L (136-145); UREA NITROGEN 16 mg/dL (7-18); eGFR NON AFRICAN AMERICAN > 90 mL/min (90-120)
--- NOTE | 2016-11-29 06:30 | NUR ---
UP IN CHAIR. GIVEN FRESH COFFEE. C/L IN REACH.
--- NOTE | 2016-11-29 19:15 | NUR ---
REC'D TO CARE, LOGISTICS ADMINISTRATOR PER FLOWSHEET. PT SLEEPING R SIDE, VSS. AWAKENS EASILY. DENIES PAIN OR NEEDS. REPORTS "UP ALL DAY AND WANT A GOOD NIGHT SLEEP". DSGS TO CHEST, SUBSTERNUM AND R LEG NOTED. TPM VVI 60 - WIRES SECURED, SENSING. CM - NSR. L DLSC, SL'D, DSG C/D/I. ALARMS ON AND C/L IN REACH.
--- NOTE | 2016-11-29 20:55 | NUR ---
PO MEDS GIVEN PER ORDERS AND PRN ATIVAN GIVEN PER PT REQUEST. PT VOIDED 400ML CLEAR, LEO URINE VIA URINAL. BACK TO BED. ALARMS ON AND C/L IN REACH.
--- NOTE | 2016-11-29 21:28 | NUR ---
NO VISITORS, PT RESTING QUIETLY.
--- NOTE | 2016-11-29 23:13 | NUR ---
REASSESSMENT PER FLOWSHEET, NO ACUTE CHANGES. PT RESTING QUIETLY, NO SIGN OF DISTERSS. VSS. DENIES NEEDS. C/L IN REACH.
[2016-11-30] VITALS (11 sets, daily range): BP systolic 95–135; BP diastolic 46–80
--- NOTE | 2016-11-30 01:05 | NUR ---
PT REPOSITIONS SELF. DENIES NEEDS. C/L IN REACH.
--- NOTE | 2016-11-30 04:07 | NUR ---
UP TO BR, VOIDED 500ML CLEAR YELLOW URINE. BACK TO BED.
--- NOTE | 2016-11-30 04:37 | NUR ---
TO XRAY VIA W/C AND BACK TO ROOM. NO C/O.
--- NOTE | 2016-11-30 06:00 | NUR ---
UP IN CHAIR. AM LAB DRAWN. GIVEN COFFEE PER REQUEST. C/L IN REACH.
[2016-11-30 06:35] LABS: HEMATOCRIT 26.9 % (42.0-54.0); HEMOGLOBIN 9.1 g/dL (13.5-17.5); MCH 29.6 pg (26.0-34.0); MCHC 33.8 g/dL (31.0-37.0); MCV 87.6 fL (80.0-100.0); MEAN PLATELET VOLUME 10.9 fL (7.4-10.4); RBC 3.07 10x6/uL (4.20-6.10); RDW 14.4 % (11.5-14.5); WBC 5.7 10x3/uL (4.8-10.8)
[2016-11-30 06:51] LABS: ALBUMIN 2.5 g/dL (3.4-5.0); ALKALINE PHOSPHATASE 90 U/L (46-116); ALT (SGPT) 51 U/L (10-68); CALC OSMOLALITY 277 mosm/kg (275-300); CALCIUM 7.9 mg/dL (8.5-10.1); CARBON DIOXIDE 26.7 mmol/L (21.0-32.0); CHLORIDE - SERUM 104 mmol/L (98-107); CREATININE - SERUM 0.8 mg/dL (0.6-1.3); GLUCOSE 178 mg/dL (74-106); PROTEIN - SERUM 5.2 g/dL (6.4-8.2); SODIUM 137 mmol/L (136-145); UREA NITROGEN 12 mg/dL (7-18); eGFR NON AFRICAN AMERICAN > 90 mL/min (90-120)
--- NOTE | 2016-11-30 07:45 | NUR ---
SHIFT ASSESSMENT VIA FLOWSHEET, SEE FOR DETAILS. VSS.
--- NOTE | 2016-11-30 08:53 | NUR ---
PT AMBULATED 500FT WITH PHYSICAL THERAPY.
--- NOTE | 2016-11-30 09:10 | NUR ---
PT'S AT BEDSIDE, STATUS UPDATE PROVIDED. PT IN CHAIR AT BEDSIDE, VOICES NO ADDITIONAL NEEDS. VSS.
[2016-11-30] MEDS ORDERED: LOPRESSOR25 MG PO (10:43)
[2016-11-30] MEDS ORDERED: HYDROCODONE-APA1 TAB PO (10:45)
[2016-11-30] MEDS ORDERED: HEMOCYTE PLUS C1 CAP PO (10:45)
--- NOTE | 2016-11-30 13:32 | NUR ---
FAISAL ZAMORA RN AT BEDSIDE TO D/C TPM WIRES AND CVL.
--- NOTE | 2016-11-30 13:48 | NUR ---
Patient Name: MAHSA CARSON Admission Status: Elective Accout number: [id number] Admission Date: 11-24-2016 : 1950 Admission Diagnosis:ATHSCL HEART DISEASE OF [place] COR ART W UNSP ANG PCTRS Attending: YASMEEN Current LOS: 6 Anticipated DC Date: 11-30-2016 Planned Disposition: Home Primary Insurance: [place] [employer] Is the patient Alert and Oriented? Yes * How many steps to enter\exit or inside your home? 4 STEPS IN HOME/12 STEPS INSIDE HOME WITH STEADY HAND RAILING. * PCP INSTALLATION AND REPAIR TECHNICIAN AT [facility] WILL FOLLOW UP POST CABG WITH DR WARD * Pharmacy [facility] IN [place] LOCALLY US[facility] * Preadmission Environment Home with Family * ADLs Independent * Equipment None * List name and contact numbers for known caregivers / representatives who currently or will assist patient after discharge: ANA MARIA CARSON, , [phone] * Community resources currently utilized [place] [facility] * Please name any agencies selected above. PT USES LOCAL [facility] * Additional services required to return to the preadmission environment? No * Can the patient safely return to the preadmission environment? Yes * Has this patient been hospitalized within the prior 30 days at any hospital? Yes Discharge Planning Comments: CM MET WITH PATIENT TO ASSESS DC PLAN/NEEDS. PT STATED HE LIVES AT HOME WITH HIS AND PRIOR TO THIS ADMISSION WAS DRIVING AND INDEPENDENT IN HIS CARE/ADL'S. HE STATED THAT HIS WILL DRIVE HIM HOME AT DC AND ASSIST HIM NEEDED ONCE HE IS HOME. HE STATED THAT HE HAS NEVER USED HH OR ANY REHAB SERVICES AND DOES NOT ANTICIPATE NEEDING ANY OF THOSE SERVICES AT DC. REPORTS NO DME AT HOME AND DENIED NEED FOR ANY DME. HE STATED THAT HIS HOME IS A SAFE PLACE AND PLANS TO RETURN HOME WITH HIS . PT VERBALIZED NO DC NEEDS AT THIS TIME. CM WILL FOLLOW AND ASSIST NEEDED WITH ANY DC NEEDS THEY ARISE. Leno Sewer: Anahy Contreras, RN, CM
--- NOTE | 2016-11-30 14:17 | NUR ---
AT BEDSIDE, DISCHARGE TEACHING PROVIDED BY FAISAL ZAMORA RN. PT VERBALIZES UNDERSTANDING.
--- NOTE | 2016-11-30 14:25 | NUR ---
PT TO [facility]ENTER ENTRANCE VIA WHEELCHAIR.
--- NOTE | 2016-12-08 14:37 | TEE ---
PATIENT:MAHSA CARSON MEDICAL RECORD: [id number] LOCATION:[place] [address] AGE OF PATIENT: 66 ADMISSION DATE: 11/24/16 SEX: M REFERRING PHYSICIAN: INTERPRETING PHYSICIAN: GORDO ALVAREZ MD TRANSESOPHAGEAL ECHOCARDIOGRAM MARIBELL CHARGE Y INDICATIONS: CABG PREMEDICATIONS: PATIENT'S RESPONSE PROCEDURE DOPPLER MEASUREMENTS: LVIT LA PA RA LVOT RVOT Asc. Ao AV Gradient Peak AV Mean AV Area MV Gradient Peak MV Mean MV Area INTERPRETATION: Doppler: 2-D: EF 40 % COLOR FLOW DOPPLER MILD MR NORMAL SALINE STUDY: MISCELLANOUS: DIAGNOSIS: PLAN: [employer] Mill Operator:1 Dr. Alvarez Sidewalk Inspector: Sarah METZGER COMMENTS: ED PATIENT DATE OF SERVICE: 11/24/2016 INDICATION: Preop evaluation of valvular heart disease during bypass surgery. FINDINGS: 1. Left ventricular chamber size is within normal limits. Left ventricular systolic function is mildly depressed. Overall ejection fraction 40%. 2. Left atrium, right atrium, and right ventricle chamber sizes are mildly dilated. TRANSESOPHAGEAL ECHOCARDIOGRAM REPORT [id number] MAHSA CARSON 3. Valvular structures have normal structure and motion. 4. Doppler interrogation reveals mild mitral regurgitation. No other valvular insufficiency or stenosis. 5. No evidence of pericardial effusion or left ventricular thrombus. TRANSINT:[id number] Voice Confirmation ID: [id number] DOCUMENT ID: [id number] at [id number] CC: [id number] DICTATION DATE: 11/24/16 1219 CUP SETTER LOCKSTITCH: 11/24/16 1332 DIS IN 11/30/16 [id number] [place] [id number]
== END 2016-11-30 14:25 | disposition home or self-care (01) | DRG 236 ==
LOC: D.SDCHOLD 05:00 → D.ICU 05:00 → D.SDCHOLD 07:30 → D.ICU 08:19 → D.CVICU 11-25 11:58
PROVIDERS: ADMIT Internal Medicine Cardiovascular Disease
PROC: 021209W Bypass Coronary Artery, Three Arteries from Aorta with Autologous Venous Tissue, Open Approach (ICD-10-PCS; 2016-11-24)
PROC: 06BP0ZZ Excision of Right Saphenous Vein, Open Approach (ICD-10-PCS; 2016-11-24)
PROC: 5A1221Z Performance of Cardiac Output, Continuous (ICD-10-PCS; 2016-11-24)
PROC: 02100AC Bypass Coronary Artery, One Artery from Thoracic Artery with Autologous Arterial Tissue, Open Approach (ICD-10-PCS; principal; 2016-11-24 07:30)
DX: I25.119 Atherosclerotic heart disease of native coronary artery with unspecified angina pectoris (principal); D62 Acute posthemorrhagic anemia; I10 Essential (primary) hypertension; E11.9 Type 2 diabetes mellitus without complications; Z79.4 Long term (current) use of insulin; I49.1 Atrial premature depolarization

== ENCOUNTER → 2016-12-17 09:36 | Outpatient (CLI) | payer OTHER ==
[2016-11-25 10:55] VITALS: BMI 33.7
[~2016-12-17 09:36] MED LIST changes: +HEMOCYTE PLUS C1 CAP PO; +HYDROCODON-ACE1 EAC9 PO; +HYDROCODONE-APA1 TAB PO; +LEVAQUIN750 MG PO; +LOPRESSOR25 MG PO
[2016-12-17 10:00] LABS: HEMATOCRIT 35.8 % (42.0-54.0); HEMOGLOBIN 11.5 g/dL (13.5-17.5); MCHC 32.1 g/dL (31.0-37.0); MCV 90.4 fL (80.0-100.0); MEAN PLATELET VOLUME 9.8 fL (7.4-10.4); RBC 3.96 10x6/uL (4.20-6.10); RDW 15.3 % (11.5-14.5); WBC 5.5 10x3/uL (4.8-10.8)
[2016-12-17 10:17] LABS: CALC OSMOLALITY 281 mosm/kg (275-300); CALCIUM 8.7 mg/dL (8.5-10.1); CARBON DIOXIDE 26.9 mmol/L (21.0-32.0); CHLORIDE - SERUM 104 mmol/L (98-107); CREATININE - SERUM 0.8 mg/dL (0.6-1.3); GLUCOSE 152 mg/dL (74-106); POTASSIUM - SERUM 4.3 mmol/L (3.5-5.1); SODIUM 139 mmol/L (136-145); UREA NITROGEN 14 mg/dL (7-18); eGFR NON AFRICAN AMERICAN > 90 mL/min (90-120)
== END | disposition home or self-care (01) ==
LOC: D.LAB 08:00
PROVIDERS: Internal Medicine Cardiovascular Disease
DX: J91.8 Pleural effusion in other conditions classified elsewhere (principal); D64.9 Anemia, unspecified

== ENCOUNTER 2016-12-24 15:12 | Inpatient (IN) | payer OTHER ==
[~2016-12-24] VITALS: Ht 182.9 cm; Wt 103.4 kg
--- NOTE | ~2016-12-24 | OP ---
PATIENT NAME: MAHSA CARSON MEDICAL RECORD: [id number] :[birth year] LOCATION:[id number] ADMISSION DATE:12/24/16 SURGEON: YONY WARD MD DATE OF OPERATION: 12/25/2016 SURGEON: Yony Ward M.D. ANESTHESIA: General, Dr. Gomez. OPERATION PERFORMED: Incision and drainage of right lower leg abscess. PREOPERATIVE DIAGNOSIS: Abscess, right lower extremity. POSTOPERATIVE DIAGNOSIS: Abscess, right lower extremity INDICATION FOR OPERATION: Abscess, right lower extremity. FINDINGS AT OPERATION: The 2 lower incisions of the vein harvest were opened and there was a tract between the two. ESTIMATED BLOOD LOSS: Less than 20 cc. DESCRIPTION OF PROCEDURE: After informed consent, adequate preoperative medication evaluation, the patient was brought to the operating room, placed on the table in the supine position. After induction of general endotracheal anesthesia and application of appropriate monitoring devices, the right leg were prepped and draped in a sterile field, utilizing Betadine scrub, alcohol, and Betadine solution. Betadine-impregnated drape was also used. The 2 draining sinuses were opened and utilizing a Yankauer suction, the 2 incisions were connected through the abscess tract. The wounds underwent extensive debridement and irrigation. The wounds were cleansed, iodoform packing was placed from the upper incision to just below the previous incision with a piece of iodoform gauze through the abscess tract and exiting the upper incision. A Surgifix dressing was placed. The patient tolerated the procedure well and was transferred to recovery room in satisfactory condition. TRANSINT:[id number] Voice Confirmation ID: [id number] DOCUMENT ID: [id number] 01/05/[address] WARD: This was an excisional debridement at the level of subcutaneous tissue. YONY WARD MD CC: [id number] DICTATION DATE: 12/25/16 1311 PIPE AND TEST SUPERVISOR: 12/25/162036 DIS IN 12/28/16 [place] [id number] [place] [id number]
[~2016-12-24 15:12] MED LIST changes: -HYDROCODON-ACE1 EAC9 PO; -LEVAQUIN750 MG PO
[2016-12-24] MEDS ORDERED: HEMOCYTE PLUS C1 CAP PO (16:19)
[2016-12-24] MEDS ORDERED: HYDROCODON-ACE1 EAC9 PO (16:19)
[2016-12-24 16:22] VITALS: BP 137/71; BMI 31.0
[2016-12-24 17:25] LABS: HEMATOCRIT 33.2 % (42.0-54.0); HEMOGLOBIN 10.8 g/dL (13.5-17.5); MCH 28.6 pg (26.0-34.0); MCHC 32.5 g/dL (31.0-37.0); MCV 87.8 fL (80.0-100.0); RBC 3.78 10x6/uL (4.20-6.10); RDW 14.4 % (11.5-14.5); WBC 5.3 10x3/uL (4.8-10.8)
[2016-12-24 17:51] LABS: ALBUMIN 3.3 g/dL (3.4-5.0); ALKALINE PHOSPHATASE 126 U/L (46-116); ALT (SGPT) 33 U/L (10-68); BILIRUBIN - TOTAL 0.44 mg/dL (0.2-1.3); CALC OSMOLALITY 284 mosm/kg (275-300); CALCIUM 8.8 mg/dL (8.5-10.1); CARBON DIOXIDE 27.7 mmol/L (21.0-32.0); CHLORIDE - SERUM 103 mmol/L (98-107); CREATININE - SERUM 0.7 mg/dL (0.6-1.3); GLUCOSE 164 mg/dL (74-106); POTASSIUM - SERUM 3.8 mmol/L (3.5-5.1); PROTEIN - SERUM 6.3 g/dL (6.4-8.2); SODIUM 141 mmol/L (136-145); UREA NITROGEN 12 mg/dL (7-18); eGFR NON AFRICAN AMERICAN > 90 mL/min (90-120)
[2016-12-24 20:00] VITALS: BP 127/70
--- NOTE | 2016-12-24 21:11 | NUR ---
PATIENT RESTINGIN BED. ALERT AND ORIENTED. NO SIGNS OF DISTRESS NOTED. SCHEDULED MEDS GIVEN. SHIFT ASSESSMENT COMPLETED. DENIES ANY NEEDS AT THIS TIME. BED LOW. CALL LIGHT IN REACH
[2016-12-25] VITALS (13 sets, daily range): BP systolic 115–141; BP diastolic 59–81; Ht 182.9 cm; Wt 103.4 kg
--- NOTE | 2016-12-25 07:30 | NUR ---
AWAKE AND ALERT. ORIENTED TO SELF. NO C/O AT THIS TIME. LUNGS ARE CLEAR BILATERALLY, NO COUGH NOTED. SKIN IS INTACT WITHOUT REDNESS EXCEPT WOUNDS TO RIGHT LOWER LEG WHICH HAVE A DRY INTACT DRESSING IN PLACE. SL TO RIGHT FOREARM IS PATENT WITHOUT REDNESS AT INSERTION SITE. UP TO SHOWER PER SELF. LINENS CHANGED PER STAFF. REQUESTED AND GIVEN ONE ULTRAM PO FOR C/O RIGHT LEG PAIN. WILL MONITOR.
--- NOTE | 2016-12-25 10:00 | NUR ---
RESTING QUIETLY IN BED DENIES NEEDS.
--- NOTE | 2016-12-25 13:54 | NUR ---
RETURNED FROM SURGERY. DRESSING TO RIGHT LE DRY AND INTACT WITH SMALL AREA OF LEAKAGE. WILL MONITOR.
--- NOTE | 2016-12-25 15:21 | NUR ---
SPOKE WITH TINO ROSARIO FOR DR. WARD. NEW ORDERS FOR DIABETIC DIET RECEIVED.
--- NOTE | 2016-12-25 15:59 | NUR ---
Patient Name: MAHSA CARSON Admission Status: Elective Accout number: [id number] Admission Date: 12-24-2016 : 1950 Admission Diagnosis:CUTANEOUS ABSCESS OF RIGHT LOWER LIMB Attending: YASMEEN Current LOS: 1 Anticipated DC Date: 12-29-2016 Planned Disposition: Home or Self Care Primary Insurance: [facility] CHOICE Discharge Planning Comments: CM MET WITH PATIENT REGARDING D/C NEEDS AND PLANS. PATIENTS IS DRIVING HIM HOME AT DISCHARGE. PATIENT HAS 2 STEPS TO ENTER HOME AND NO STAIRS INSIDE. PATIENT STATED HE SEES A DOCTOR AT THE [place] [facility] [place] AND HAS THE OPTION PLAN TO STAY HERE INSTEAD OF BEING TRANSFERRED TO THE [place]. PATIENT USES [facility]. PATIENT IS INDEPENDENT WITH HIS CARE AND HAS A GLUCOMETER AND CHECKS EVERY 1-2 DAYS. PATIENT DOES NOT THINK HE NEEDS HOME HEALTH AT DISCHARGE. CM WILL CONTINUE TO FOLLOW PATIENT WITH D/C NEEDS AND PLANS. PCP [place] [facility] [place]- [phone] ANA MARIA () [phone] Vice Principal: Ema Wilcox Is the patient Alert and Oriented? Yes 0 * How many steps to enter\exit or inside your home? 2 W/O RAIL 0 * PCP [facility] [place] 0 * [facility] 0 * Preadmission Environment Home with Family 0 * ADLs Independent 0 * Equipment Glucometer 0 * List name and contact numbers for known caregivers / representatives who currently or will assist patient after discharge: ANA MARIA () [phone] * Community resources currently utilized None 0 * Additional services required to return to the preadmission environment? Yes 0 * Can the patient safely return to the preadmission environment? Yes 0 * Has this patient been hospitalized within the prior 30 days at any hospital? No 0 Grand Total: 0
--- NOTE | 2016-12-25 16:12 | NUR ---
CM REASSESSMENT NOTE: PREET SPOKE WITH LIA AT [facility] REGARDING PATIENTS ADMIT. EBEN OVIEDO SPOKE WITH CAN IN CM OFFICE AND SHE STATED DR. WARD HAS AGREEMENT WITH [place] FOR THIS PATIENT. PREET EXPLAINED THIS TO LIA AND SHE SAID OK AND HUNG UP.
--- NOTE | 2016-12-25 17:00 | NUR ---
FSBS 188. GIVEN 2 UNITS REGULAR SUBQ PER SS. ATE ALL OF SUPPER. NO CHANGES NOTED. DENIES NEEDS.
--- NOTE | 2016-12-25 19:11 | NUR ---
DRESSING CHANGED TO RIGHT LEG WOUNDS FOR LEAKAGE.
[2016-12-26 00:23] VITALS: BP 139/70
--- NOTE | 2016-12-26 01:30 | NUR ---
ASSESSED AT THE BEGINNING OF THE SHIFT. PT IS ALERT AND ORIENTED, ABLE TO VERBALIZE NEEDS. THERE IS A DRESSING TO HIS RIGHT LOWER EXTREMITY THAT WAS DRAINING BLOODY DRAINAGE AND WE REDRESSED IT WITHOUT PULLING OUT THE PACKING. WHEN WE DID HIS BLOOD SUGAR AND HE TOOK HIS S/S INSULIN BUT HE RESUSED HIS NORMAL LANTUS. HIS SCD'S ARE NOT ON AT THIS TIME PER HIS REQUEST. THE BED IS LOW, RAILS UP X'S 2 WITH THE CALL LIGHT AT HAND.
[2016-12-26 04:00] VITALS: BP 113/61
[2016-12-26 08:20] VITALS: BP 131/85
--- NOTE | 2016-12-26 08:32 | NUR ---
AWAKE AND ALERT. ORIENTED X3. NO C/O AT THIS TIME. LUNGS ARE CLEAR BILATERALLY, NO COUGH NOTED. SKIN IS INTACT WITHOUT REDNESS EXCEPT 2 WOUNDS TO RIGHT LOWER LEG, WHICH HAVE A DRESSING IN PLACE. SL TO RIGHT FOREARM IS PATNET WITHOUT REDNESS AT INSERTION SITE. DENIES NEEDS. SITTING UP IN BED EATING BREAKFAST.
--- NOTE | 2016-12-26 12:15 | HP ---
PATIENT: MAHSA CARSON MEDICAL RECORD: [id number] ACCOUNT: [id number] LOCATION:D.[facility] : [birth year] ADMISSION DATE: 12/24/16 HISTORY AND PHYSICAL EXAMINATION MAHSA Veras (66yo, M) ID# [id number]. Date/Time12/24/2016 01:[id number] 1950Service Dept.[facility] ClinicProviderEDLILA WARD MDInsuranceMed Primary: [place] Insurance # : [id number] Employer Name : RETIRED Med Contracts: [employer] Insurance # : [id number] Employer Name : RETIRED Prescription: Haztucesta - This member could not be found in the payer's files. Please verify coverage and all member demographic information. Chief Complaint Followup: Coronary arteriosclerosis s/p CABG 11/24/16 check leg abscess Patient's Care Team Notes: NO PCP Patient's Pharmacies [facility] (PHARMACY): [address] [place] [phone], , [facility] (ERX): [address] [facility] [address], , Vitals BP:130/70 sitting R arm 12/24/2016 02:15 pmHR:80R/R 12/24/2016 02:15 pmHt:6 ft 12/24/2016 02:09 pmWt:228 lbs 12/24/2016 02:15 pmBMI:30.9 12/24/2016 02:15 pmAllergies Reviewed Allergies NKDAMedications Reviewed Medications aspirin 81mg daily11/03/16 enteredCindy Brownatorvastatin 80 mg tablet Take 1 tablet(s) every day by oral route.11/03/16 enteredCindy BrowncefaCLOR 500 mg capsule TAKE 1 C PO Q 8 H FOR 10 DAYS12/17/16 filledsurescripts HumuLIN R U-100 100 unit/mL injection solution PER SLIDING SCALE12/06/15 filledsurescriptsinsulin glargine 100 unit/mL (3 mL) subcutaneous pen Inject 40 unit(s) every day by subcutaneous route at bedtime.11/03/16 Paris Hickeyisosorbide dinitrate 30 mg tablet Take 1 tablet(s) every day by oral route.11/03/16 christopherIqra HickeyKenalog 10 mg/mL suspension for injection Take 1 mL by injection route as directed.07/04/15 Devika Villagomez MDlisinopril 2.5 mg tablet Take 1 tablet(s) every day by oral route.11/03/16 christopherIqra HickeymetFORMIN 1000mg 1 tablet by mouth twice daily04/04/15 christopherLuisana Shirleymetoprolol tartrate 25 mg tablet Take 0.5 tablet(s) twice a day by oral route.11/03/16 christopherIqra Hickeynitroglycerin 0.[address] 1 tablet(s) as needed by sublingual route.11/03/16 Paris HickeyNovoLIN R InnoLet 100 unit/mL (3 mL) subcutaneous insulin pen Inject 8 unit(s) 3 times a day by subcutaneous route before meals.11/03/16 HISTORY AND PHYSICAL [id number] MAHSA CARSONVaccines Reviewed Vaccines Some vaccines listed in Document: #[id number] could not be added to this patient's chart. Please review this document and add these vaccines to the patient's chart manually as needed. Problems Reviewed Problems Coronary arteriosclerosis - Onset: 11/03/2016 Olecranon bursitis Rupture of tendon of biceps Family History Reviewed Family History Non-contributory.Father- PneumoniaMother- Family history of cancerSocial History Reviewed Social History Smoking Status: Never smoker Surgical History Reviewed Surgical History Biceps tendon repair Biceps tendon repair - 04/19/2015 Other - 2013 - LITHOTRIPSY-KIDNEY STONES Other - 2012 - HERNIA REPAIR Past Medical History Reviewed Past Medical History Chest Pain: Y Coronary Artery Disease: Y Diabetes: Y - insulin dependent Hypertension: Y Stroke: Y Kidney Disease: (no answer) - KIDNEY STONES Documents for Discussion N/A Screening None recorded. HPI Post-Op Visit Reported by patient. Associated Symptoms: incision healing well; no fatigue; normal appetite; normal bowel function; no constipation; no nausea; no emesis; pain improving; no pain; no fever; no bleeding; no dysuria/urinary symptoms; lower extremity edema/pain status post coronary artery bypass abscess right lower leg ROS Patient reports no fever, no night sweats, no significant weight gain, no significant weight loss, and no exercise intolerance; easy fatigability. He reports vision change (left homonymous heminoptcia) but reports no dry eyes and no irritation. He reports shortness of breath but reports no cough, no wheezing, and no coughing up blood. He reports muscle aches and arthralgias/joint pain but reports no muscle weakness, no back pain, and no swelling in the extremities. He reports no abnormal mole, no jaundice, and no rashes; abscess right lower extremity. He reports no loss of consciousness, no weakness, no numbness, no seizures, no dizziness, and no headaches; left field cut. He reports no difficulty hearing and no ear pain. He HISTORY AND PHYSICAL [id number] MAHSA CARSON reports no frequent nosebleeds and no nose/sinus problems. He reports no sore throat, no bleeding gums, no snoring, no dry mouth, no mouth ulcers, no oral abnormalities, and no teeth problems. He reports no jugular vein distension and no swollen glands. He reports no chest pain, no arm pain on exertion, no shortness of breath w hen walking, no shortness of breath when lying down, no palpitations, and no known heart murmur. He reports no abdominal pain, no vomiting, normal appetite, no diarrhea, not vomiting blood, no nausea, and no constipation. He reports no incontinence, no di f ficulty urinating, no hematuria, and no increased frequency. He reports no depression, no sleep disturbances, feeling safe in relationship, and no alcohol abuse. He reports no fatigue. He reports no swollen glands and no bruising. He reports no runny nose , no sinus pressure, no itching, no hives, and no frequent sneezing. ROS as noted in the HPI Physical Exam Patient is a 66-year-old male. Constitutional: General Appearance well nourished and developed and healthy-appearing. Level of Distress NAD. Ambulation ambulating normally. Cardiovascular: Apical Impulse not displaced or no thrill. Heart Auscultation normal s1 and s2; no murmurs, rubs, or gallops; and RRR. Arterial Pulses no abdominal aorta bruits, femoral bruits, or popliteal bruits and 2+ bilateral , carotid 2+ bilateral, femoral 2+ bilateral, popliteal 2+ bilateral, and dorsalis pedis 2+ bilateral. Edema no edema or varicosities; chest incisions are well-healed. Lungs: Repiratory Effort no dyspnea. Percussion no hyperresonance or dullness or flatne ss. Auscultation no wheezing, rhonchi, or rales / crackles and breathing sounds normal, good air movement, and CTA except as noted. Abdomen: Bowl Sounds normal. Inspection and Palpation no tenderness, guarding, masses, or rebound tenderness and soft and n on-distended. Liver non-tender and no hepatomegaly. Spleen non-tender and no splenomegaly. Hernia none palpable. Musculoskeletal System: Gait And Stance normal gait and stance. Digits and Nails normal nails and no cyanosis. Neurologic: Cranial Nerves grossly intact. Reflexes DTRs 2+ bilaterally throughout. Sensation grossly intact. Lymph Nodes: Lymph Nodes no cervical LAD, supraclavicular LAD, axillary LAD, or inguinal LAD. Eyes: Lids and Conjunctivae no discharge or pallor and non-injected; the left field cut. Pupils PERRLA. Cornea grossly intact. EOM EOMI. Lens clear. Sclerae non-icteric. Neck: Neck no masses or enlarged lymph nodes and supple, trachea midline, and carotid bruits (soft bilateral). Thyroid no enlargement or nodules and non-tender. Skin: Inspection and Palpation no rash, lesions, ulcers, jaundice, or abnormal nevi; abscess right lower extremity medial aspect. muscle retracted proximally Assessment / Plan abscess right lower extremity HISTORY AND PHYSICAL [id number] MAHSA CARSON 1. Abscess of lower limb - Right L02.419: Cutaneous abscess of limb, unspecified 2. Coronary arteriosclerosis I25.10: Atherosclerotic heart disease of alutiiq coronary artery without angina pectoris Discussion Notes will need admission for IV antibiotics Failure of therapy as an outpatient Will probably need debridement YONY WARD MD at 1215 CC: [id number] DICTATION DATE: 12/24/16 1345 KNITTING MACHINE OPERATOR: ISELA 12/24/16 1516 ADM IN [facility] [address] [place] [address]
[2016-12-26 12:55] VITALS: BP 115/72
[2016-12-26 16:37] VITALS: BP 116/68
--- NOTE | 2016-12-26 18:33 | NUR ---
ATE ALL OF SUPPER. FSBS 181. GIVEN 2 UNITS REGULAR SUBQ PER SS. NO CHANGES NOTED AT THIS TIME.
[2016-12-26 20:00] VITALS: BP 132/75
[2016-12-27] VITALS: BP 128/63
[2016-12-27 04:00] VITALS: BP 146/86
--- NOTE | 2016-12-27 04:46 | NUR ---
PATIENT RESTING WITH EYES CLOSED. NO VISIBLE SIGNS OF DISTRESS. BED IN LOWEST POSITION AND CALL LIGHT WITHIN REACH.
--- NOTE | 2016-12-27 07:30 | NUR ---
AWAKE AND ALERT. ORIENTED X3. NO C/O THIS AM. LUNGS ARE CLEAR BILATERALLY, NO COUGH NOTED. SKIN IS INTACT WITHOUT REDNESS EXCEPT WOUNDS TO RIGHT LOWER EXTREMETY WHCIH HAVE A DYR INTACAT DRESSING IN PLAC. SL TO RIGHT FOREARM IS PATENT WTIHOUT REDNESS. DENIES NEEDS.
--- NOTE | 2016-12-27 09:00 | NUR ---
ATE ALMOST ALL OF BREAKFAST. DENIES NEEDS.
[2016-12-27 10:07] VITALS: BP 140/80
[2016-12-27 12:50] VITALS: BP 136/74
[2016-12-27 17:17] VITALS: BP 132/72
--- NOTE | 2016-12-27 18:32 | NUR ---
ATE ALL OF SUPPER. NO C/O AT THIS TIME. NO CHANGES NOTED. DRESSING TO RIGHT LOWER EXTREMETY DRY AND INTACT.
[2016-12-27 19:00] VITALS: BP 121/73
--- NOTE | 2016-12-27 20:00 | NUR ---
REC'D IN BED AWAKE AND ALERT WITH NO DISTRESS NOTED. CAN EXPRESS NEEDS AND WANTS. VERY PLEASANT. ASSESSSMENT COMPLETED. NOC/O NOTED AT THIS TIME.
--- NOTE | 2016-12-27 20:27 | NUR ---
WAS MEDICATED WITH NORCO PER ORDERS FOR C/O PAIN RATING 9/10 ON PAIN SCALE. C/L IN REACH AT BEDSIDE.
[2016-12-28] VITALS: BP 119/54
[2016-12-28 04:00] VITALS: BP 152/68
--- NOTE | 2016-12-28 07:35 | NUR ---
PT AOX4 RESP EVEN AND NONLABORED PT DENIES NEEDS AT THIS TIME IV TO RIGHT FOREARM PATENT AND INTACT WILL CONTINUE TO MONITOR BED AT LOWEST SETTING SRX2
[2016-12-28 08:39] VITALS: BP 116/68
[2016-12-28] MEDS ORDERED: LEVAQUIN750 MG PO (10:30)
[2016-12-28 11:30] VITALS: BP 114/62
--- NOTE | 2016-12-28 12:45 | NUR ---
IV DISCONTINUED INTACT AT THIS TIME PT LEFT VIA WHEELCHAIR VIA PRIVATE VEHICLE WITH DISCHARGE INFORMATION IN HAND
== END 2016-12-28 13:10 | disposition home or self-care (01) | DRG 857 ==
LOC: D.MS 15:12
PROVIDERS: ADMIT Internal Medicine Cardiovascular Disease
PROC: 0JBN0ZZ Excision of Right Lower Leg Subcutaneous Tissue and Fascia, Open Approach (ICD-10-PCS; principal; 2016-12-25 13:00)
DX: T81.4XXA Infection following a procedure, initial encounter (principal); L02.415 Cutaneous abscess of right lower limb; E11.9 Type 2 diabetes mellitus without complications; B96.20 Unspecified Escherichia coli [E. coli] as the cause of diseases classified elsewhere; I25.10 Atherosclerotic heart disease of native coronary artery without angina pectoris; I10 Essential (primary) hypertension; Z95.1 Presence of aortocoronary bypass graft

== ENCOUNTER 2017-01-02 09:30 | Outpatient (CLI) | payer OTHER ==
[~2017-01-02 09:30] MED LIST changes: +HYDROCODON-ACE1 EAC9 PO; +LEVAQUIN750 MG PO
[2017-01-02 10:49] VITALS: Ht 182.9 cm
== END 2017-01-02 10:57 | disposition home or self-care (01) ==
LOC: D.OPS 09:30 → D.MS 09:32 → D.OPS 10:57
DX: Z48.01 Encounter for change or removal of surgical wound dressing (principal)

== ENCOUNTER 2017-01-03 08:50 | Outpatient (CLI) | payer OTHER ==
[2017-01-03 09:29] VITALS: Ht 182.9 cm
--- NOTE | 2017-01-03 09:31 | NUR ---
DRESSING ON WOUND CHANGED ORDERED. SKIN CLEANED WITH CHLORHEXIDINE. NEW PACKING PLACED, COVERED WITH 4X4 AND REDRESSED WITH SPANDAGE. PATIENT TOLERATED WITH SMALL AMOUNT OF PAIN. WOUND CLEAN AND DRY. PINK ON INSIDE, NO SIGNS OF INFECTION.
== END 2017-01-03 09:33 | disposition home or self-care (01) ==
LOC: D.OPS 08:50 → D.MS 08:51 → D.OPS 09:33
DX: Z48.01 Encounter for change or removal of surgical wound dressing (principal)

== ENCOUNTER 2017-01-09 08:42 | Outpatient (CLI) | payer OTHER ==
[~2017-01-09] VITALS: Ht 182.9 cm; Wt 102.3 kg
--- NOTE | 2017-01-09 09:15 | NUR ---
TO ROOM 2215 FROM HOME.HE IS HERE FOR STERILE DRESSING CHANGEX2 TO LEFT LOWER EXT.HE DENIES PAIN AT PRESENT.ASSESSMENT PER ADMIT PACK.
--- NOTE | 2017-01-09 09:30 | NUR ---
DRESSING CHANGE X2 ON LEFT LOWER EXT USING REGIONAL AGRONOMIST ORDERED.PT TOLERATED WELL AND DENIE NEEDS.DISCHARGE INSTRUCTIONS TO RETURN IN AM FOR DRESSING CHAGE AGAIN.PT STATES UNDERSTANDING.
--- NOTE | 2017-01-09 09:45 | NUR ---
LEFT FLOOR AMBULATORY,DECLINES WHEELCHAIR.
[2017-01-09 15:07] VITALS: BP 146/77; Ht 182.9 cm; Wt 102.3 kg
== END 2017-01-09 11:00 | disposition home or self-care (01) ==
LOC: D.OPS 08:42 → D.MS 09:04 → D.OPS 11:00
DX: Z48.00 Encounter for change or removal of nonsurgical wound dressing (principal)

== ENCOUNTER 2017-01-10 08:54 | Outpatient (CLI) | payer OTHER ==
[2017-01-09 15:07] VITALS: BMI 30.6
== END 2017-01-10 13:57 | disposition home or self-care (01) ==
LOC: D.OPS 08:54 → D.MS 08:55 → D.OPS 13:57
DX: Z48.00 Encounter for change or removal of nonsurgical wound dressing (principal)

== ENCOUNTER 2017-01-16 08:39 | Outpatient (CLI) | payer OTHER ==
[2017-01-09 15:07] VITALS: BMI 30.6
--- NOTE | 2017-01-16 09:36 | NUR ---
0839-AMBULATES TO ROOM WITH ADMISSIONS STAFF. TO HAVE RIGHT LOWER LEG DRESSING CHANGE DONE. PATIENT REPORTS THAT HE SHOWERED THIS AM AND REMOVED THE PACKING. THERE IS A STOCKINGNETTE ALONG WITH DRY 4 X 4'S TO LEG. RIGHT LOWER EXTREMITIY WITH 2 WOUNDS, UPPER ONE MEASURES 3.0 CM X 1.0 CM X 1.0 CM WITH TUNNELING 0.5 CM IN THE 7 O'CLOCK POSITION. WOUND BED IS CLEAN WITH CLEAR DRAINAGE. PACKED WITH 1/2" PLAIN PACKING STRIP, COVERED WITH CLEAN 4 X 4. 2ND WOUND IS 1.0 CM X 0.5 CM X 0.5 CM WITH TUNNELING IN THE 7 O'CLOCK POSTION. NO DRAINAGE SEEN. THIS IS PACKED WITH 1/4" PLAIN PACKING, COVERED WITH CLEAN 4 X 4 AND BOTH OF THESE ARE SECRUED WITH STOCKINGNETTE. TOLERATED WELL. DISCHARGED HOME AND TO COME BACK IN AM FOR ANOTHER DRESSING CHANGE.
== END 2017-01-16 09:18 | disposition home or self-care (01) ==
LOC: D.OPS 08:39 → D.M2 08:40 → D.OPS 09:18
DX: Z48.00 Encounter for change or removal of nonsurgical wound dressing (principal)

== ENCOUNTER 2017-01-17 09:38 | Outpatient (CLI) | payer OTHER ==
[2017-01-09 15:07] VITALS: BMI 30.6
--- NOTE | 2017-01-17 10:13 | NUR ---
0945-AMBULATES TO ROOM WITH HOSPITAL STAFF FOR DRESSING CHANGE TO BE DONE. PATIENT REMOVED HIS PACKING THIS AM WITH HIS SHOWER. BILATERAL RIGHT LOWER LEG WOUNDS DRESSED ORDERED. TOLERATED WELL. HE HAS FOLLOWUP WITH DR WARD IN AM. I ASKED THAT PATIENT CALL ME IF ANY PROBLEMS WITH HIS DRESSING TODAY. DISCHARGED HOME PER SELF.
== END 2017-01-17 10:00 | disposition home or self-care (01) ==
LOC: D.OPS 09:38 → D.M2 09:39 → D.OPS 10:00
DX: Z48.00 Encounter for change or removal of nonsurgical wound dressing (principal)

== ENCOUNTER 2019-11-24 10:51 | Inpatient (IN) | payer MEDICARE ==
[~2019-11-24] VITALS: Ht 182.9 cm; Wt 104.3 kg
--- NOTE | 2019-11-24 11:21 | NUR ---
URINE SPECIMEN SENT TO LAB.
[2019-11-24 11:31] LABS: BASOPHILS 0.1 % (0-2); EOSINOPHILS 1.2 % (0-7); HEMATOCRIT 42.5 % (42.0-54.0); HEMOGLOBIN 15.3 g/dL (13.5-17.5); IMMATURE GRANULOCYTES 0.1 % (0-5); MCH 31.9 pg (26.0-34.0); MCV 88.7 fL (80.0-100.0); MEAN PLATELET VOLUME 9.8 fL (7.4-10.4); MONOCYTES 8.1 % (2-11); NEUTROPHILS 70.5 % (40-80); RBC 4.79 10x6/uL (4.20-6.10); RDW 13.2 % (11.5-14.5); WBC 6.9 10x3/uL (4.8-10.8)
[2019-11-24 11:34] LABS: PLATELET COUNT 125 10x3/uL (130-400)
[2019-11-24 11:40] LABS: CALC OSMOLALITY 283 mosm/kg (275-300); CALCIUM 9.1 mg/dL (8.5-10.1); CARBON DIOXIDE 27.9 mmol/L (21.0-32.0); CHLORIDE - SERUM 103 mmol/L (98-107); CREATININE - SERUM 0.9 mg/dL (0.6-1.3); GLUCOSE 192 mg/dL (74-106); POTASSIUM - SERUM 4.3 mmol/L (3.5-5.1); SODIUM 139 mmol/L (136-145); UREA NITROGEN 14 mg/dL (7-18); eGFR NON AFRICAN AMERICAN 89 mL/min (90-120)
[2019-11-24 11:47] LABS: ALBUMIN 4.2 g/dL (3.4-5.0); ALKALINE PHOSPHATASE 59 U/L (30-120); ALT (SGPT) 24 U/L (10-68); AMYLASE - SERUM 33 U/L (25-115); BILIRUBIN - TOTAL 1.15 mg/dL (0.2-1.3); PROTEIN - SERUM 7.3 g/dL (6.4-8.2)
[2019-11-24 11:48] LABS: LIPASE 37 U/L (73-393)
[2019-11-24 11:49] LABS: BACTERIA FEW /hpf (NEGATIVE); BILIRUBIN NEGATIVE (NEGATIVE); EPITHELIAL CELLS 0-5 /hpf (0-5); GLUCOSE 250 mg/dL (NEGATIVE); KETONE NEGATIVE (NEGATIVE); NITRITE NEGATIVE (NEGATIVE); SPECIFIC GRAVITY 1.015 (1.005-1.020); UROBILINOGEN 4 mg/dL (NORMAL); WHITE CELLS - URINE RARE /hpf (NEGATIVE)
[2019-11-24 13:13] VITALS: BP 154/68
[2019-11-24 16:21] VITALS: BP 144/74
[2019-11-24] MEDS ORDERED: TOUJEO SOL300 UNIT/1 SQ (16:43)
--- NOTE | 2019-11-24 16:56 | NUR ---
RECEIVED PT FROM ER. NS INFUSING @100ML/HR VIA R.AC PIV. AAO AND UP AD IESHA. NO S/S OF DISTRESS NOTED. PT ORIENTED TO ROOM AND DENIES ANY NEEDS AT THIS TIME. WILL CTM.
[2019-11-24 18:41] VITALS: BP 155/74; BMI 31.2
[2019-11-24 20:00] VITALS: BP 135/66
--- NOTE | 2019-11-24 20:00 | NUR ---
PATIENT RESTING IN BED WITH EYES OPEN AND AT BEDSIDE. NO S/S OF DISTRESS. NO C/O AT THIS TIME. PATIENT HAS A RIGHT FOREARM IV NORMAL SALINE @ 100 ML/HR. IV IS PATENT WITHOUT REDNESS, SWELLING, OR TENDERNESS. PATIENT HAS BACK PAIN FROM KIDNEY STONE. PATIENT IS UP AD-IESHA. CALL LIGHT IN PLACE. WILL CONTINUE TO MONITOR
--- NOTE | 2019-11-25 01:26 | NUR ---
I have reviewed this patient and I concur with the Shift Assessment completed by the Licensed Practical Nurse today this shift.
[2019-11-25 04:00] VITALS: BP 144/62; BP 149/60
[2019-11-25 06:23] LABS: MCH 31.7 pg (26.0-34.0); MCHC 35.1 g/dL (31.0-37.0); MCV 90.2 fL (80.0-100.0); MEAN PLATELET VOLUME 10.7 fL (7.4-10.4); PLATELET COUNT 118 10x3/uL (130-400); RDW 13.6 % (11.5-14.5)
[2019-11-25 06:24] LABS: WBC 4.7 10x3/uL (4.8-10.8)
[2019-11-25 06:42] LABS: CALC OSMOLALITY 286 mosm/kg (275-300); CALCIUM 8.3 mg/dL (8.5-10.1); CARBON DIOXIDE 26.6 mmol/L (21.0-32.0); CHLORIDE - SERUM 108 mmol/L (98-107); CREATININE - SERUM 0.8 mg/dL (0.6-1.3); GLUCOSE 174 mg/dL (74-106); MAGNESIUM - SERUM 1.9 mg/dL (1.8-2.4); PHOSPHOROUS 3.4 mg/dL (2.5-4.9); POTASSIUM - SERUM 4.4 mmol/L (3.5-5.1); SODIUM 142 mmol/L (136-145); UREA NITROGEN 12 mg/dL (7-18); eGFR NON AFRICAN AMERICAN > 90 mL/min (90-120)
--- NOTE | 2019-11-25 07:30 | NUR ---
LAYING SUPINE. RR EVEN AND UNLABORED. DENIES NEEDS OR PAIN AT THIS TIME. CALL LIGHT WITHIN REACH. BED IN LOWEST POSITION. WILL CONTINUE TO MONITOR.
[2019-11-25 07:36] LABS: EOSINOPHILS 2 % (0-7); LYMPHOCYTES 28 % (15-50); MONOCYTES 5 % (2-11); NEUTROPHILS 65 % (40-80); PLATELET ESTIMATE DECREASED
[2019-11-25 08:33] VITALS: BP 152/71
--- NOTE | 2019-11-25 11:39 | NUR ---
DENIES NEEDS OR PAIN AT THIS TIME. CALL LIGHT WITHIN REACH. BED IN LOWEST POSITION. WILL CONTINUE TO MONITOR.
[2019-11-25 12:28] VITALS: BP 158/65
[2019-11-25 12:47] VITALS: Ht 182.9 cm; Wt 104.3 kg
--- NOTE | 2019-11-25 14:09 | NUR ---
DENIES NEEDS AT PRESENT. HE IS WITHOUT DISTRESS.
[2019-11-25 16:39] VITALS: BP 151/71
[2019-11-25] MEDS ORDERED: FLAGYL500 MG PO (17:44)
[2019-11-25] MEDS ORDERED: LEVAQUIN750 MG PO (17:44)
== END 2019-11-25 19:45 | disposition home or self-care (01) | DRG 392 ==
LOC: D.ER 10:51 → D.MS 14:19
PROVIDERS: Family Medicine; ADMIT Internal Medicine Nephrology; ATTEND Internal Medicine Nephrology
DX: A09 Infectious gastroenteritis and colitis, unspecified (principal); N39.0 Urinary tract infection, site not specified; N13.6 Pyonephrosis; N20.0 Calculus of kidney; K52.9 Noninfective gastroenteritis and colitis, unspecified; D69.6 Thrombocytopenia, unspecified; I25.10 Atherosclerotic heart disease of native coronary artery without angina pectoris; I10 Essential (primary) hypertension; E11.9 Type 2 diabetes mellitus without complications